=== PATIENT | male | born 1970 | race Caucasian/White ===

== ENCOUNTER 2016-10-14 11:48 | Inpatient (IN) | payer MEDICAID, OTHER ==
[2016-10-14] VITALS (11 sets, daily range): BP systolic 139–175; BP diastolic 65–110
[~2016-10-14] VITALS: Ht 167.6 cm; Wt 83.5 kg
[2016-10-14] MEDS ORDERED: LEVO50 PO (11:55)
[2016-10-14] MEDS ORDERED: SIMV-261 PO (11:55)
[2016-10-14] MEDS ORDERED: INSNOV SQ (11:55)
[2016-10-14] MEDS ORDERED: FURO20 PO (12:01)
[2016-10-14 12:20] LABS: BASOPHILS # (AUTO) 0.05 K/uL (0.00-0.20); BASOPHILS % (AUTO) 0.6 % (0.0-2.0); EOSINOPHILS # (AUTO) 0.43 K/uL (0.00-0.70); EOSINOPHILS % (AUTO) 5.81 % (1.0-6.0); LYMPHOCYTES # (AUTO) 1.5 K/uL (1.0-4.8); LYMPHOCYTES % (AUTO) 20.7 % (22.0-44.0); MEAN CORPUSCULAR HEMOGLOBIN 30.3 pg (26.0-34.0); MEAN CORPUSCULAR HGB CONC 32.5 G/dL (31.0-37.0); MEAN CORPUSCULAR VOLUME 93 fL (80-100); MONOCYTES # (AUTO) 0.5 K/uL (0.1-1.0); MONOCYTES % (AUTO) 6.1 % (2.0-9.0); NEUTROPHILS # (AUTO) 4.9 K/uL (1.8-7.7); NEUTROPHILS % (AUTO) 66.8 % (40.0-70.0); PLATELET COUNT (AUTO) 183 K/uL (150-450); RED BLOOD CELL COUNT(AUTO) 2.22 MIL/uL (4.50-5.90); RED CELL DISTRIBUTION WIDTH 17.1 % (11.5-14.5); WHITE BLOOD COUNT (AUTO) 7.4 K/uL (4.5-11.0)
[2016-10-14 12:38] LABS: ALBUMIN 2.1 g/dL (3.4-5.0); BILIRUBIN,TOTAL 0.2 mg/dL (0.1-1.0); CALCIUM, TOTAL 6.9 mg/dL (8.8-10.5); CREATININE 11.5 mg/dL (0.60-1.30); HEMOGLOBIN 6.7 g/dL (13.5-17.5); TOTAL PROTEIN, SERUM 5.5 g/dL (6.4-8.2)
[2016-10-14 12:39] LABS: HEMATOCRIT 20.7 % (41-53)
[2016-10-14 12:54] LABS: ADD UA MICROSCOPIC YES; APPEARANCE,URINE CLEAR (CLEAR); GLUCOSE, URINE (UA) 500 mg/dL (NEGATIVE); KETONES,URINE NEGATIVE (NEGATIVE); LEUKOCYTE ESTERASE ,URINE NEGATIVE (NEGATIVE); OCCULT BLOOD,URINE MODERATE (NEGATIVE); PROTEIN,URINE SEE CONFIRM (NEGATIVE)
[2016-10-14 12:55] LABS: SULFOSALICYLIC ACID,URINE 4+ (Negative)
[2016-10-14 12:57] LABS: SQUAMOUS EPITHELIAL CELL,UR Few /LPF (None Seen)
[2016-10-14] MEDS ORDERED: CALCIUM GLUCONATE 100 MG/ML 10 ML IVP ONE (13:00)
[2016-10-14] MEDS ORDERED: ALBUTEROL SULFATE 2.5 MG/0.5 ML NEB SOLUTION NEB ONE (13:00)
[2016-10-14] MEDS ORDERED: SODIUM POLYSTYRENE SULFONATE 15 GM/60 ML SUSPENSION BOTTLE PO ONE (13:00)
[2016-10-14 13:01] LABS: RBC MORPHOLOGY COMMENT ABNORMAL RBC MORPH
[2016-10-14] MEDS ORDERED: CloNIDine HCL 0.2 MG TABLET PO ONE (14:15)
[2016-10-14] MEDS ORDERED: ALBUTEROL SULFATE 2.5 MG/0.5 ML NEB SOLUTION NEB PRN (19:30)
[2016-10-14] MEDS ORDERED: IPRATROPIUM BROMIDE 0.5 MG/2.5 ML NEB SOLUTION NEB PRN (19:30)
[2016-10-14] MEDS ORDERED: OxyCODONE HCL/ACETAMINOPHEN 5-325 MG TABLET PO PRN (19:30)
[2016-10-14] MEDS ORDERED: MAGNESIUM HYDROXIDE SUSPENSION 30 ML UDCUP PO PRN (19:30)
[2016-10-14] MEDS ORDERED: ZOLPIDEM TARTRATE 5 MG TABLET PO PRN (19:30)
[2016-10-14] MEDS ORDERED: DEXTROSE 50%-WATER 25 GM/50 ML SYRINGE IVP PRN (19:30)
[2016-10-14] MEDS ORDERED: ACETAMINOPHEN 325 MG TABLET PO PRN (19:30)
[2016-10-14] MEDS ORDERED: BISACODYL 10 MG RECTAL RECTAL SUPPOSITORY PR PRN (19:30)
[2016-10-14 19:52] LABS: CREATININE 11.36 mg/dL (0.60-1.30); POTASSIUM 5.3 mmol/L (3.5-5.1)
[2016-10-14] MEDS: HEPARIN SODIUM,PORCINE 5,000 UNITS/ML VIAL SQ SCH (21:34)
[2016-10-14] MEDS: SIMVASTATIN 40 MG TABLET PO SCH (21:34)
[2016-10-14 23:05] LABS: ABG A-A DIFF O2 17.8 mmHg (10-20.0); ABG BASE EXCESS -17.5 mmol/L (-2.0-3.0); ABG HCO3 11.8 mmol/L (22.0-26.0); ABG OXYHEMOGLOBIN 94.3 % (94.0-100.0); ABG PCO2 28 mmHg (35-45); TEMPERATURE, FAHRENHEIT, BG 98.6 FAHREN (96.0-98.6)
[2016-10-14 23:07] LABS: ABG PH 7.198 (7.35-7.450); ALLEN TEST, BLOOD GAS POSITIVE
[2016-10-14] MEDS ORDERED: SODIUM BICARBONATE 150 MEQ in DEXTROSE 5%-WATER 1,000 ML IV ONE (23:45)
[2016-10-15] MEDS ORDERED: HEPARIN SODIUM,PORCINE 1,000 UNITS/ML VIAL IVP ONE
[2016-10-15 02:47] LABS: GLUCOSE COMMENT 1 Doctor Notified; GLUCOSE,POINT OF CARE 158 MG/DL (70-110)
[2016-10-15] MEDS: LEVOTHYROXINE SODIUM 50 MCG TABLET PO SCH (05:59)
[2016-10-15 06:11] LABS: BASOPHILS # (AUTO) 0.04 K/uL (0.00-0.20); BASOPHILS % (AUTO) 0.7 % (0.0-2.0); EOSINOPHILS # (AUTO) 0.28 K/uL (0.00-0.70); EOSINOPHILS % (AUTO) 5.05 % (1.0-6.0); HEMOGLOBIN 7.5 g/dL (13.5-17.5); LYMPHOCYTES # (AUTO) 1.4 K/uL (1.0-4.8); LYMPHOCYTES % (AUTO) 24.6 % (22.0-44.0); MEAN CORPUSCULAR HEMOGLOBIN 30.3 pg (26.0-34.0); MEAN CORPUSCULAR HGB CONC 34.1 G/dL (31.0-37.0); MEAN CORPUSCULAR VOLUME 89 fL (80-100); MONOCYTES # (AUTO) 0.4 K/uL (0.1-1.0); MONOCYTES % (AUTO) 7.1 % (2.0-9.0); NEUTROPHILS # (AUTO) 3.5 K/uL (1.8-7.7); NEUTROPHILS % (AUTO) 62.6 % (40.0-70.0); PLATELET COUNT (AUTO) 150 K/uL (150-450); RED BLOOD CELL COUNT(AUTO) 2.48 MIL/uL (4.50-5.90); RED CELL DISTRIBUTION WIDTH 18.4 % (11.5-14.5); WHITE BLOOD COUNT (AUTO) 5.6 K/uL (4.5-11.0)
[2016-10-15] MEDS: CloNIDine HCL 0.1 MG TABLET PO PRN ×2 (06:30→16:59)
[2016-10-15 06:32] LABS: ALBUMIN 1.8 g/dL (3.4-5.0); BILIRUBIN,TOTAL 0.2 mg/dL (0.1-1.0); CALCIUM, TOTAL 6.8 mg/dL (8.8-10.5); CHOL/HDL RATIO 4.5 (4.2-7.3); CREATININE 11.31 mg/dL (0.60-1.30); MAGNESIUM 2.5 mg/dL (1.80-2.40); POTASSIUM 5.1 mmol/L (3.5-5.1); THYROID STIMULATING HORMONE 6.1 uIU/mL (0.36-3.74); TOTAL PROTEIN, SERUM 4.7 g/dL (6.4-8.2)
[2016-10-15 06:54] LABS: HEMOGLOBIN A1C 5.6 % (4.5-6.2)
[2016-10-15 07:30] LABS: PHOSPHORUS 9.3 mg/dL (2.5-4.9)
[2016-10-15 07:55] LABS: RBC MORPHOLOGY COMMENT ABNORMAL RBC MORPH
[2016-10-15 07:58] LABS: TEMPERATURE, FAHRENHEIT, BG 98.3 FAHREN (96.0-98.6)
[2016-10-15 08:10] LABS: ABG A-A DIFF O2 14.1 mmHg (10-20.0); ABG HCO3 13.5 mmol/L (22.0-26.0); ABG OXYHEMOGLOBIN 95.7 % (94.0-100.0); ABG PCO2 33 mmHg (35-45)
[2016-10-15 08:12] LABS: ABG PH 7.207 (7.35-7.450); ALLEN TEST, BLOOD GAS Positive
[2016-10-15] MEDS: HEPARIN SODIUM,PORCINE 5,000 UNITS/ML VIAL SQ SCH ×2 (09:13→20:11)
[2016-10-15] MEDS: PANTOPRAZOLE SODIUM 40 MG DR TABLET PO SCH (09:14)
[2016-10-15 11:07] LABS: GLUCOSE,POINT OF CARE 215 MG/DL (70-110)
[2016-10-15] MEDS: SOD FERRIC GLUC COMPLX/SUCROSE 125 MG in SODIUM CHLORIDE 0.9% 100 ML IV SCH (12:00)
[2016-10-15 12:03] LABS: PROTHROMBIN TIME 10.5 SEC (9.4-11.6)
[2016-10-15 12:45] LABS: CREATININE 11.2 mg/dL (0.60-1.30); POTASSIUM 4.8 mmol/L (3.5-5.1)
[2016-10-15 13:18] VITALS: BP 173/99
[2016-10-15 17:31] LABS: GLUCOSE,POINT OF CARE 188 MG/DL (70-110)
[2016-10-15] MEDS: CARVEDILOL 6.25 MG TABLET PO SCH (18:08)
[2016-10-15] MEDS: INSULIN ASPART 100 UNITS/ML SQ PRN (18:14)
[2016-10-15 18:31] VITALS: BP 190/96
[2016-10-15] MEDS: HydrALAZINE HCL 20 MG/ML VIAL IVP PRN (20:08)
[2016-10-15] MEDS: SIMVASTATIN 40 MG TABLET PO SCH (20:11)
[2016-10-15 21:39] VITALS: BP 162/100
[2016-10-16] VITALS (8 sets, daily range): BP systolic 140–180; BP diastolic 77–101
[2016-10-16] MEDS ORDERED: INFLUENZA VIRUS VACCINE QVS 2016-17 (3YR+)/PF 60 MCG/0.5 ML SYRINGE IM ONE (01:15)
[2016-10-16] MEDS ORDERED: PNEUMOCOCCAL VACCINE POLYVALENT 0.5 ML VIAL [PPSV23] IM ONE (01:15)
[2016-10-16 02:51] LABS: GLUCOSE COMMENT 1 Received Meds; GLUCOSE,POINT OF CARE 130 MG/DL (70-110)
[2016-10-16 05:42] LABS: GLUCOSE,POINT OF CARE 137 MG/DL (70-110)
[2016-10-16] MEDS: INSULIN ASPART 100 UNITS/ML SQ PRN ×2 (06:16→21:18)
[2016-10-16] MEDS: HEPARIN SODIUM,PORCINE 5,000 UNITS/ML VIAL SQ SCH ×2 (09:00→20:21)
[2016-10-16 09:15] LABS: CALCIUM, TOTAL 6.6 mg/dL (8.8-10.5); CREATININE 11.09 mg/dL (0.60-1.30); POTASSIUM 5.4 mmol/L (3.5-5.1)
[2016-10-16 09:19] LABS: ALBUMIN 1.7 g/dL (3.4-5.0); BILIRUBIN,TOTAL 0.2 mg/dL (0.1-1.0); TOTAL PROTEIN, SERUM 4.7 g/dL (6.4-8.2)
[2016-10-16] MEDS: LEVOTHYROXINE SODIUM 50 MCG TABLET PO SCH (09:27)
[2016-10-16] MEDS: EPOETIN ALFA 10,000 UNITS/ML 2 ML VIAL SQ SCH (09:55)
[2016-10-16] MEDS ORDERED: MIDAZOLAM HCL 2 MG/2 ML VIAL ONE (14:22)
[2016-10-16] MEDS ORDERED: HEPARIN SODIUM 1000 UNITS/NS 500 ML ONE (14:22)
[2016-10-16] MEDS ORDERED: LIDOCAINE HCL 1%/EPI 1:200,000/PF 10 ML VIAL ONE (14:22)
[2016-10-16] MEDS ORDERED: HEPARIN SODIUM,PORCINE 1,000 UNITS/ML 10 ML VIAL ONE (14:22)
[2016-10-16] MEDS ORDERED: FentaNYL CITRATE-PF 100 MCG/2 ML VIAL ONE (14:22)
[2016-10-16] MEDS: SOD FERRIC GLUC COMPLX/SUCROSE 125 MG in SODIUM CHLORIDE 0.9% 100 ML IV SCH (18:48)
[2016-10-16] MEDS: PANTOPRAZOLE SODIUM 40 MG DR TABLET PO SCH (18:50)
[2016-10-16] MEDS: CARVEDILOL 6.25 MG TABLET PO SCH (18:50)
[2016-10-16] MEDS ORDERED: SODIUM CHLORIDE 0.9% 250 ML IV ONE (18:53)
[2016-10-16] MEDS: CloNIDine HCL 0.1 MG TABLET PO PRN (19:24)
[2016-10-16] MEDS: SIMVASTATIN 40 MG TABLET PO SCH (20:21)
[2016-10-17] MEDS: CARVEDILOL 6.25 MG TABLET PO SCH ×3 (00:14→20:02)
[2016-10-17] MEDS ORDERED: SODIUM CHLORIDE 0.9% 2,000 ML IV ONE (04:07)
[2016-10-17 04:12] VITALS: BP 148/79
[2016-10-17 07:19] LABS: BASOPHILS % (AUTO) 0.9 % (0.0-2.0); EOSINOPHILS % (AUTO) 9.1 % (1.0-6.0); HEMATOCRIT 22.1 % (41-53); HEMOGLOBIN 7.3 g/dL (13.5-17.5); LYMPHOCYTES # (AUTO) 1.2 K/uL (1.0-4.8); LYMPHOCYTES % (AUTO) 27.3 % (22.0-44.0); MEAN CORPUSCULAR HEMOGLOBIN 29.7 pg (26.0-34.0); MEAN CORPUSCULAR HGB CONC 32.8 G/dL (31.0-37.0); MEAN CORPUSCULAR VOLUME 91 fL (80-100); MONOCYTES # (AUTO) 0.2 K/uL (0.1-1.0); MONOCYTES % (AUTO) 5.6 % (2.0-9.0); NEUTROPHILS # (AUTO) 2.5 K/uL (1.8-7.7); NEUTROPHILS % (AUTO) 57.1 % (40.0-70.0); PLATELET COUNT (AUTO) 150 K/uL (150-450); RED BLOOD CELL COUNT(AUTO) 2.44 MIL/uL (4.50-5.90); RED CELL DISTRIBUTION WIDTH 18.8 % (11.5-14.5); WHITE BLOOD COUNT (AUTO) 4.3 K/uL (4.5-11.0)
[2016-10-17 07:34] LABS: CALCIUM, TOTAL 6.8 mg/dL (8.8-10.5); CREATININE 7.33 mg/dL (0.60-1.30); MAGNESIUM 1.9 mg/dL (1.80-2.40); PHOSPHORUS 5.5 mg/dL (2.5-4.9); POTASSIUM 3.6 mmol/L (3.5-5.1)
[2016-10-17 07:45] VITALS: BP 175/105
[2016-10-17] MEDS: HEPARIN SODIUM,PORCINE 5,000 UNITS/ML VIAL SQ SCH ×2 (08:51→21:00)
[2016-10-17] MEDS: ONDANSETRON HCL 4 MG/2 ML VIAL IVP PRN ×2 (08:51→17:33)
[2016-10-17] MEDS: LEVOTHYROXINE SODIUM 50 MCG TABLET PO SCH (08:51)
[2016-10-17] MEDS: PANTOPRAZOLE SODIUM 40 MG DR TABLET PO SCH (08:51)
[2016-10-17 10:34] LABS: RBC MORPHOLOGY COMMENT ABNORMAL RBC MORPH
[2016-10-17 10:56] VITALS: BP 178/85
[2016-10-17 12:03] LABS: GLUCOSE COMMENT 1 Received Meds; GLUCOSE,POINT OF CARE 178 MG/DL (70-110)
[2016-10-17 12:03] LABS: GLUCOSE,POINT OF CARE 139 MG/DL (70-110)
[2016-10-17] MEDS: SOD FERRIC GLUC COMPLX/SUCROSE 125 MG in SODIUM CHLORIDE 0.9% 100 ML IV SCH (12:42)
[2016-10-17] MEDS: CALCITRIOL 0.25 MCG CAPSULE PO SCH (12:42)
[2016-10-17 15:11] VITALS: BP 177/94
[2016-10-17] MEDS ORDERED: HEPARIN SODIUM,PORCINE 1,000 UNITS/ML VIAL IVP ONE ×2 (18:36)
[2016-10-17 19:27] VITALS: BP 183/89
[2016-10-17] MEDS: SIMVASTATIN 40 MG TABLET PO SCH (20:02)
[2016-10-17] MEDS: HydrALAZINE HCL 20 MG/ML VIAL IVP PRN (20:03)
[2016-10-17] MEDS: INSULIN ASPART 100 UNITS/ML SQ PRN (20:23)
[2016-10-17 23:49] VITALS: BP 158/70
[2016-10-18] MEDS ORDERED: PROPOFOL 1% 20 ML VIAL IVP ONE (00:07)
[2016-10-18] MEDS ORDERED: HEPARIN SODIUM,PORCINE 1,000 UNITS/ML 10 ML VIAL IVP ONE (00:07)
[2016-10-18] MEDS ORDERED: FentaNYL CITRATE-PF 100 MCG/2 ML VIAL IVP ONE (00:17)
[2016-10-18 04:34] VITALS: BP 137/75
[2016-10-18] MEDS: LEVOTHYROXINE SODIUM 50 MCG TABLET PO SCH (06:00)
[2016-10-18 07:08] LABS: BASOPHILS % (AUTO) 0.5 % (0.0-2.0); EOSINOPHILS % (AUTO) 5.5 % (1.0-6.0); HEMATOCRIT 25.7 % (41-53); HEMOGLOBIN 8.4 g/dL (13.5-17.5); LYMPHOCYTES # (AUTO) 1.3 K/uL (1.0-4.8); LYMPHOCYTES % (AUTO) 21.2 % (22.0-44.0); MEAN CORPUSCULAR HEMOGLOBIN 29.4 pg (26.0-34.0); MEAN CORPUSCULAR HGB CONC 32.6 G/dL (31.0-37.0); MEAN CORPUSCULAR VOLUME 90 fL (80-100); MONOCYTES # (AUTO) 0.7 K/uL (0.1-1.0); MONOCYTES % (AUTO) 10.9 % (2.0-9.0); NEUTROPHILS # (AUTO) 3.8 K/uL (1.8-7.7); NEUTROPHILS % (AUTO) 61.9 % (40.0-70.0); PLATELET COUNT (AUTO) 167 K/uL (150-450); RED BLOOD CELL COUNT(AUTO) 2.86 MIL/uL (4.50-5.90); RED CELL DISTRIBUTION WIDTH 18.1 % (11.5-14.5); WHITE BLOOD COUNT (AUTO) 6.2 K/uL (4.5-11.0)
[2016-10-18 07:14] LABS: RBC MORPHOLOGY COMMENT ABNORMAL RBC MORPH
[2016-10-18 07:15] VITALS: BP 166/95
[2016-10-18 07:32] LABS: GLUCOSE,POINT OF CARE 109 MG/DL (70-110)
[2016-10-18] MEDS: HEPARIN SODIUM,PORCINE 5,000 UNITS/ML VIAL SQ SCH ×2 (07:32→20:24)
[2016-10-18 07:36] LABS: GLUCOSE,POINT OF CARE 172 MG/DL (70-110)
[2016-10-18] MEDS: HydrALAZINE HCL 20 MG/ML VIAL IVP PRN (07:39)
[2016-10-18 07:48] LABS: CREATININE 6.71 mg/dL (0.60-1.30); MAGNESIUM 1.7 mg/dL (1.80-2.40); PHOSPHORUS 5.7 mg/dL (2.5-4.9); POTASSIUM 3.8 mmol/L (3.5-5.1)
[2016-10-18] MEDS ORDERED: SODIUM CHLORIDE 0.9% 1,000 ML IV ONE ×2 (08:30→08:36)
[2016-10-18] MEDS ORDERED: HYDROmorphone 2 MG/ML SYRINGE IVP PRN (09:30)
[2016-10-18] MEDS ORDERED: FentaNYL CITRATE-PF 100 MCG/2 ML VIAL IVP PRN (09:30)
[2016-10-18] MEDS ORDERED: MEPERIDINE-PF 25 MG/ML SYRINGE IVP PRN (09:30)
[2016-10-18] MEDS ORDERED: LIDOCAINE HCL/PF 1% 30 ML VIAL ONE (09:44)
[2016-10-18] MEDS ORDERED: HEPARIN SODIUM,PORCINE 5,000 UNITS/ML VIAL SQ ONE (09:44)
[2016-10-18] MEDS ORDERED: SODIUM CHLORIDE 0.9% 10 ML ONE (09:44)
[2016-10-18 11:15] VITALS: BP 162/86
[2016-10-18] MEDS: CARVEDILOL 6.25 MG TABLET PO SCH ×2 (11:36→20:24)
[2016-10-18] MEDS: CALCITRIOL 0.25 MCG CAPSULE PO SCH (11:36)
[2016-10-18] MEDS: PANTOPRAZOLE SODIUM 40 MG DR TABLET PO SCH (11:36)
[2016-10-18] MEDS: EPOETIN ALFA 10,000 UNITS/ML 2 ML VIAL SQ SCH (11:37)
[2016-10-18] MEDS: SOD FERRIC GLUC COMPLX/SUCROSE 125 MG in SODIUM CHLORIDE 0.9% 100 ML IV SCH (14:56)
[2016-10-18 15:13] VITALS: BP 146/80
[2016-10-18] MEDS: INSULIN ASPART 100 UNITS/ML SQ PRN ×2 (18:15→20:25)
[2016-10-18 19:47] LABS: GLUCOSE,POINT OF CARE 105 MG/DL (70-110)
[2016-10-18 19:48] VITALS: BP 147/76
[2016-10-18] MEDS: OXYGEN THERAPY IH SCH (20:00)
[2016-10-18] MEDS: SIMVASTATIN 40 MG TABLET PO SCH (20:24)
[2016-10-18 23:54] VITALS: BP 137/69
[2016-10-19 06:08] VITALS: BP 100/50
[2016-10-19] MEDS: OXYGEN THERAPY IH SCH ×2 (08:00→20:00)
[2016-10-19 09:56] VITALS: BP 168/81
[2016-10-19] MEDS: PANTOPRAZOLE SODIUM 40 MG DR TABLET PO SCH (09:57)
[2016-10-19] MEDS: CALCITRIOL 0.25 MCG CAPSULE PO SCH (09:57)
[2016-10-19] MEDS: CARVEDILOL 6.25 MG TABLET PO SCH ×2 (09:57→19:44)
[2016-10-19] MEDS: LEVOTHYROXINE SODIUM 50 MCG TABLET PO SCH (09:57)
[2016-10-19] MEDS: HEPARIN SODIUM,PORCINE 5,000 UNITS/ML VIAL SQ SCH ×2 (09:58→19:44)
[2016-10-19] MEDS: HydrALAZINE HCL 20 MG/ML VIAL IVP PRN ×2 (09:58→19:45)
[2016-10-19 10:28] LABS: BASOPHILS % (AUTO) 0.8 % (0.0-2.0); EOSINOPHILS % (AUTO) 5.6 % (1.0-6.0); HEMATOCRIT 26.2 % (41-53); HEMOGLOBIN 8.5 g/dL (13.5-17.5); LYMPHOCYTES # (AUTO) 1.8 K/uL (1.0-4.8); LYMPHOCYTES % (AUTO) 22.1 % (22.0-44.0); MEAN CORPUSCULAR HEMOGLOBIN 29.4 pg (26.0-34.0); MEAN CORPUSCULAR HGB CONC 32.5 G/dL (31.0-37.0); MEAN CORPUSCULAR VOLUME 91 fL (80-100); MONOCYTES % (AUTO) 12.2 % (2.0-9.0); NEUTROPHILS # (AUTO) 4.9 K/uL (1.8-7.7); NEUTROPHILS % (AUTO) 59.3 % (40.0-70.0); PLATELET COUNT (AUTO) 184 K/uL (150-450); RED CELL DISTRIBUTION WIDTH 18.2 % (11.5-14.5); WHITE BLOOD COUNT (AUTO) 8.2 K/uL (4.5-11.0)
[2016-10-19 10:36] VITALS: BP 151/86
[2016-10-19 10:37] LABS: CALCIUM, TOTAL 7.1 mg/dL (8.8-10.5); CREATININE 4.73 mg/dL (0.60-1.30); MAGNESIUM 1.5 mg/dL (1.80-2.40); PHOSPHORUS 3.7 mg/dL (2.5-4.9); POTASSIUM 3.2 mmol/L (3.5-5.1)
[2016-10-19 10:50] LABS: RBC MORPHOLOGY COMMENT ABNORMAL RBC MORPH
[2016-10-19 11:34] VITALS: BP 152/89
[2016-10-19] MEDS: INSULIN ASPART 100 UNITS/ML SQ PRN ×3 (12:43→20:50)
[2016-10-19] MEDS: SOD FERRIC GLUC COMPLX/SUCROSE 125 MG in SODIUM CHLORIDE 0.9% 100 ML IV SCH (14:56)
[2016-10-19] MEDS ORDERED: CARV6 PO (15:27)
[2016-10-19] MEDS ORDERED: CALC25 PO (15:27)
[2016-10-19] MEDS ORDERED: FOLI1CAP2 PO ×2 (16:01→16:04)
[2016-10-19 16:06] VITALS: BP 153/84
[2016-10-19 19:22] VITALS: BP 185/94
[2016-10-19] MEDS: SIMVASTATIN 40 MG TABLET PO SCH (19:44)
[2016-10-20 00:05] VITALS: BP 141/69
[2016-10-20 05:09] VITALS: BP 170/97
[2016-10-20] MEDS: LEVOTHYROXINE SODIUM 50 MCG TABLET PO SCH (05:52)
[2016-10-20 07:59] VITALS: BP_SYST 178; BP_DIAS 90; BP_DIAS 99
[2016-10-20] MEDS: OXYGEN THERAPY IH SCH (08:00)
[2016-10-20] MEDS: PANTOPRAZOLE SODIUM 40 MG DR TABLET PO SCH (08:36)
[2016-10-20] MEDS: CALCITRIOL 0.25 MCG CAPSULE PO SCH (08:36)
[2016-10-20] MEDS: HEPARIN SODIUM,PORCINE 5,000 UNITS/ML VIAL SQ SCH (08:36)
[2016-10-20] MEDS: CARVEDILOL 6.25 MG TABLET PO SCH (08:36)
[2016-10-20 11:07] VITALS: BP 150/83
[2016-10-20] MEDS: SOD FERRIC GLUC COMPLX/SUCROSE 125 MG in SODIUM CHLORIDE 0.9% 100 ML IV SCH (11:41)
[2016-10-20] MEDS: INSULIN ASPART 100 UNITS/ML SQ PRN (12:28)
[2016-10-21 17:37] LABS: GLUCOSE,POINT OF CARE 135 MG/DL (70-110)
[2016-10-21 17:37] LABS: GLUCOSE,POINT OF CARE 103 MG/DL (70-110)
[2016-10-21 17:37] LABS: GLUCOSE,POINT OF CARE 120 MG/DL (70-110)
[2016-10-21 17:42] LABS: GLUCOSE,POINT OF CARE 114 MG/DL (70-110)
[2016-10-22 05:32] LABS: GLUCOSE COMMENT 1 Received Meds; GLUCOSE,POINT OF CARE 214 MG/DL (70-110)
[2016-10-22 15:02] LABS: GLUCOSE COMMENT 1 Received Meds; GLUCOSE,POINT OF CARE 144 MG/DL (70-110)
[2016-10-22 15:23] LABS: GLUCOSE COMMENT 1 Received Meds; GLUCOSE,POINT OF CARE 147 MG/DL (70-110)
[2016-10-22 15:27] LABS: GLUCOSE,POINT OF CARE 228 MG/DL (70-110)
== END 2016-10-20 13:45 | disposition home or self-care (01) | DRG 444 ==
LOC: EDUNIT# 11:48 → EMS 11:49 → AHU 10-15 08:14 → 5S 10-15 18:19
PROVIDERS: ADMIT Internal Medicine; ATTEND Internal Medicine
PROC: 30243N1 Transfusion of Nonautologous Red Blood Cells into Central Vein, Percutaneous Approach (ICD-10-PCS; 2016-10-16)
PROC: 02HV33Z Insertion of Infusion Device into Superior Vena Cava, Percutaneous Approach (ICD-10-PCS; 2016-10-16)
PROC: B548ZZA Ultrasonography of Superior Vena Cava, Guidance (ICD-10-PCS; 2016-10-16)
PROC: 3E0234Z Introduction of Serum, Toxoid and Vaccine into Muscle, Percutaneous Approach (ICD-10-PCS; 2016-10-16)
PROC: 5A1D00Z (ICD-10-PCS; 2016-10-16)
PROC: 031C0ZF Bypass Left Radial Artery to Lower Arm Vein, Open Approach (ICD-10-PCS; principal; 2016-10-18 09:45)
DX: N17.9 Acute kidney failure, unspecified (principal); E43 Unspecified severe protein-calorie malnutrition; E87.2 Acidosis; I12.0 Hypertensive chronic kidney disease with stage 5 chronic kidney disease or end stage renal disease; D63.1 Anemia in chronic kidney disease; E11.21 Type 2 diabetes mellitus with diabetic nephropathy; E11.65 Type 2 diabetes mellitus with hyperglycemia; E03.9 Hypothyroidism, unspecified; E11.22 Type 2 diabetes mellitus with diabetic chronic kidney disease; E11.319 Type 2 diabetes mellitus with unspecified diabetic retinopathy without macular edema; E78.00 Pure hypercholesterolemia, unspecified; E78.5 Hyperlipidemia, unspecified; E83.39 Other disorders of phosphorus metabolism; E87.5 Hyperkalemia; N18.6 End stage renal disease; E88.09 Other disorders of plasma-protein metabolism, not elsewhere classified; Z79.4 Long term (current) use of insulin; Z87.442 Personal history of urinary calculi; Z87.891 Personal history of nicotine dependence; Z68.29 Body mass index [BMI] 29.0-29.9, adult; Z23 Encounter for immunization; Z79.899 Other long term (current) drug therapy; Z98.890 Other specified postprocedural states; Z80.8 Family history of malignant neoplasm of other organs or systems
CPT/HCPCS: 36245; 36561; 76770; 76937; 82306; 82570; 82805; 82962; 83036; 83540; 83550; 83735; 83970; 84100; 84156; 84300; 84443; 84540; 86850; 86900; 86901; 86920; 87081; 87086; 87340; 90471; 90935; 93005; 93970; 94644; 96365; 96366; 96374; 99291; J0360; J0610; J0690; J0885; J1644; J1815; J2250; J2405; J2704; J2916; J3010; J3490; J7030; J7050; J7060; P9016

== ENCOUNTER 2016-11-18 22:54 | Inpatient (IN) | payer OTHER ==
[~2016-11-18] VITALS: Ht 167.6 cm; Wt 71.2 kg
[~2016-11-18 22:54] MED LIST: CALC25 PO; CARV6 PO; FOLI1CAP2 PO; INSNOV SQ; LEVO50 PO; SIMV40 PO
[2016-11-18 23:12] LABS: GLUCOSE,POINT OF CARE 180 MG/DL (70-110)
[2016-11-18 23:24] LABS: BASOPHILS % (AUTO) 0.6 % (0.0-2.0); HEMATOCRIT 36.8 % (41-53); HEMOGLOBIN 11.7 g/dL (13.5-17.5); LYMPHOCYTES # (AUTO) 1.4 K/uL (1.0-4.8); LYMPHOCYTES % (AUTO) 17.8 % (22.0-44.0); MEAN CORPUSCULAR HEMOGLOBIN 29.7 pg (26.0-34.0); MEAN CORPUSCULAR HGB CONC 31.9 G/dL (31.0-37.0); MEAN CORPUSCULAR VOLUME 93 fL (80-100); MONOCYTES # (AUTO) 0.5 K/uL (0.1-1.0); MONOCYTES % (AUTO) 6.6 % (2.0-9.0); PLATELET COUNT (AUTO) 233 K/uL (150-450); RED BLOOD CELL COUNT(AUTO) 3.95 MIL/uL (4.50-5.90); RED CELL DISTRIBUTION WIDTH 16.9 % (11.5-14.5); WHITE BLOOD COUNT (AUTO) 7.9 K/uL (4.5-11.0)
[2016-11-18 23:33] LABS: ANION GAP 6 mmol/L (8-16); CALCIUM, TOTAL 8.8 mg/dL (8.8-10.5); CARBON DIOXIDE 29 mmol/L (22-29); CHLORIDE 104 mmol/L (98-107); CREATININE 6.33 mg/dL (0.60-1.30); GLOMERULAR FILTR. RATE CALC 10 mL/min (>60); POTASSIUM 5.3 mmol/L (3.5-5.1); SODIUM SERUM 139 mmol/L (136-145); UREA NITROGEN, BLOOD 38 mg/dL (7-18)
[2016-11-18 23:34] LABS: PROTHROMBIN TIME 10.6 SEC (9.4-11.6)
[2016-11-18 23:47] LABS: B-TYPE NATRIURETIC PEPTIDE 3810 pg/mL (0-100)
[2016-11-18 23:58] LABS: ALANINE AMINOTRANSFERASE 22 U/L (12-78); ALBUMIN 3.1 g/dL (3.4-5.0); ASPARTATE AMINOTRANSFERASE 23 U/L (15-37); BILIRUBIN,TOTAL 0.4 mg/dL (0.1-1.0); CREATINE KINASE MB 4.7 ng/mL (0-5); CREATINE KINASE, TOTAL 396 U/L (39-308); TOTAL PROTEIN, SERUM 7.1 g/dL (6.4-8.2)
[2016-11-19] MEDS ORDERED: LABETALOL HCL 5 MG/ML 20 ML VIAL IVP ONE ×2 (02:15→04:00)
[2016-11-19] MEDS ORDERED: NITROGLYCERIN 2% (1 GM=INCH) PACKET TP ONE (02:30)
[2016-11-19] MEDS ORDERED: FUROSEMIDE 40 MG/4 ML VIAL IVP ONE (02:30)
[2016-11-19] MEDS ORDERED: SODIUM POLYSTYRENE SULFONATE 15 GM/60 ML SUSPENSION BOTTLE PR ONE (02:30)
[2016-11-19] MEDS ORDERED: SODIUM POLYSTYRENE SULFONATE 15 GM/60 ML SUSPENSION BOTTLE PO ONE (02:45)
[2016-11-19] MEDS ORDERED: HydrALAZINE HCL 20 MG/ML VIAL IVP ONE (05:00)
[2016-11-19 06:08] VITALS: BP 151/88
[2016-11-19 07:18] VITALS: BP 177/89
[2016-11-19] MEDS ORDERED: CloNIDine HCL 0.1 MG TABLET PO PRN (08:30)
[2016-11-19] MEDS ORDERED: DEXTROSE 50%-WATER 25 GM/50 ML SYRINGE IVP PRN (08:30)
[2016-11-19] MEDS ORDERED: GuaiFENesin/D-METHORPHAN [SUGAR-FREE] 200-20MG/10 ML SYRUP UDCUP PO PRN (08:30)
[2016-11-19] MEDS ORDERED: SODIUM CHLORIDE 0.9% 2,000 ML IV ONE (08:42)
[2016-11-19] MEDS ORDERED: CARVEDILOL 6.25 MG TABLET PO SCH (09:00)
[2016-11-19] MEDS ORDERED: ONDANSETRON HCL 4 MG/2 ML VIAL IVP PRN (10:00)
[2016-11-19] MEDS ORDERED: HydrALAZINE HCL 20 MG/ML VIAL IVP PRN (10:15)
[2016-11-19] MEDS: INSULIN ASPART 100 UNITS/ML SQ PRN ×4 (10:18→21:21)
[2016-11-19] MEDS ORDERED: LEVOTHYROXINE SODIUM 50 MCG TABLET PO SCH (10:30)
[2016-11-19 10:39] LABS: CALCIUM, TOTAL 8.1 mg/dL (8.8-10.5); CREATININE 5.41 mg/dL (0.60-1.30); POTASSIUM 4.5 mmol/L (3.5-5.1)
[2016-11-19 10:40] LABS: BASOPHILS % (AUTO) 0.4 % (0.0-2.0); EOSINOPHILS % (AUTO) 4.4 % (1.0-6.0); HEMATOCRIT 30.2 % (41-53); HEMOGLOBIN 9.7 g/dL (13.5-17.5); LYMPHOCYTES # (AUTO) 1.1 K/uL (1.0-4.8); LYMPHOCYTES % (AUTO) 15.2 % (22.0-44.0); MEAN CORPUSCULAR HEMOGLOBIN 29.8 pg (26.0-34.0); MEAN CORPUSCULAR HGB CONC 32.3 G/dL (31.0-37.0); MEAN CORPUSCULAR VOLUME 92 fL (80-100); MONOCYTES # (AUTO) 0.3 K/uL (0.1-1.0); MONOCYTES % (AUTO) 4.1 % (2.0-9.0); NEUTROPHILS # (AUTO) 5.6 K/uL (1.8-7.7); NEUTROPHILS % (AUTO) 75.9 % (40.0-70.0); PLATELET COUNT (AUTO) 219 K/uL (150-450); RED BLOOD CELL COUNT(AUTO) 3.26 MIL/uL (4.50-5.90); RED CELL DISTRIBUTION WIDTH 16.9 % (11.5-14.5); WHITE BLOOD COUNT (AUTO) 7.4 K/uL (4.5-11.0)
[2016-11-19] MEDS ORDERED: ALBUTEROL SULFATE 2.5 MG/0.5 ML NEB SOLUTION NEB PRN (10:45)
[2016-11-19] MEDS ORDERED: IPRATROPIUM BROMIDE 0.5 MG/2.5 ML NEB SOLUTION NEB PRN (10:45)
[2016-11-19] MEDS ORDERED: ACETAMINOPHEN 325 MG TABLET PO PRN (10:45)
[2016-11-19] MEDS ORDERED: DOCUSATE SODIUM 100 MG CAPSULE PO PRN (10:45)
[2016-11-19 11:00] VITALS: BP 138/76
[2016-11-19] MEDS ORDERED: EPOETIN ALFA 10,000 UNITS/ML 2 ML VIAL SQ SCH (11:55)
[2016-11-19] MEDS ORDERED: HEPARIN SODIUM,PORCINE 1,000 UNITS/ML VIAL IVP ONE (12:47)
[2016-11-19] MEDS: PANTOPRAZOLE SODIUM 40 MG DR TABLET PO SCH (13:30)
[2016-11-19] MEDS: AmLODIPine BESYLATE 10 MG TABLET PO SCH (13:30)
[2016-11-19] MEDS: ASPIRIN 81 MG EC TABLET PO SCH (13:30)
[2016-11-19 16:19] VITALS: BP 123/61
[2016-11-19 19:35] VITALS: BP 132/68
[2016-11-19] MEDS ORDERED: SIMVASTATIN 40 MG TABLET PO SCH (21:00)
[2016-11-19] MEDS: HEPARIN SODIUM,PORCINE 5,000 UNITS/ML VIAL SQ SCH (21:13)
[2016-11-19] MEDS: CARVEDILOL 6.25 MG TABLET PO SCH (21:14)
[2016-11-19 23:54] VITALS: BP 128/64
[2016-11-20 04:12] LABS: GLUCOSE COMMENT 1 Received Meds; GLUCOSE,POINT OF CARE 201 MG/DL (70-110)
[2016-11-20 04:13] VITALS: BP 147/86
[2016-11-20 04:13] LABS: GLUCOSE COMMENT 1 Received Meds; GLUCOSE,POINT OF CARE 233 MG/DL (70-110)
[2016-11-20] MEDS: INSULIN ASPART 100 UNITS/ML SQ PRN (06:13)
[2016-11-20 06:42] LABS: GLUCOSE COMMENT 1 Received Meds; GLUCOSE,POINT OF CARE 202 MG/DL (70-110)
[2016-11-20 06:42] LABS: GLUCOSE COMMENT 1 Received Meds; GLUCOSE,POINT OF CARE 154 MG/DL (70-110)
[2016-11-20 06:47] LABS: GLUCOSE COMMENT 1 Received Meds; GLUCOSE,POINT OF CARE 152 MG/DL (70-110)
[2016-11-20 06:49] LABS: BASOPHILS % (AUTO) 1.3 % (0.0-2.0); EOSINOPHILS % (AUTO) 11.6 % (1.0-6.0); HEMATOCRIT 33.6 % (41-53); HEMOGLOBIN 10.7 g/dL (13.5-17.5); LYMPHOCYTES # (AUTO) 2.1 K/uL (1.0-4.8); LYMPHOCYTES % (AUTO) 28.7 % (22.0-44.0); MEAN CORPUSCULAR HEMOGLOBIN 29.7 pg (26.0-34.0); MEAN CORPUSCULAR HGB CONC 31.9 G/dL (31.0-37.0); MEAN CORPUSCULAR VOLUME 93 fL (80-100); MONOCYTES # (AUTO) 0.7 K/uL (0.1-1.0); MONOCYTES % (AUTO) 9.6 % (2.0-9.0); NEUTROPHILS # (AUTO) 3.5 K/uL (1.8-7.7); NEUTROPHILS % (AUTO) 48.8 % (40.0-70.0); PLATELET COUNT (AUTO) 236 K/uL (150-450); RED BLOOD CELL COUNT(AUTO) 3.62 MIL/uL (4.50-5.90); RED CELL DISTRIBUTION WIDTH 16.9 % (11.5-14.5); WHITE BLOOD COUNT (AUTO) 7.2 K/uL (4.5-11.0)
[2016-11-20 07:17] VITALS: BP 164/90
[2016-11-20 07:24] LABS: HEMOGLOBIN A1C 5.3 % (4.5-6.2)
[2016-11-20 07:36] LABS: IRON, SERUM 50 mcg/dL (50-175); TOTAL IRON BINDING CAPACITY 210 mcg/dL (250-450)
[2016-11-20 07:51] LABS: ALANINE AMINOTRANSFERASE 14 U/L (12-78); ALBUMIN 2.3 g/dL (3.4-5.0); ANION GAP 8 mmol/L (8-16); ASPARTATE AMINOTRANSFERASE 16 U/L (15-37); BILIRUBIN,TOTAL 0.3 mg/dL (0.1-1.0); CALCIUM, TOTAL 7.8 mg/dL (8.8-10.5); CARBON DIOXIDE 28 mmol/L (22-29); CHLORIDE 104 mmol/L (98-107); CHOL/HDL RATIO 2.5 (4.2-7.3); CREATINE KINASE MB 2.3 ng/mL (0-5); CREATINE KINASE, TOTAL 156 U/L (39-308); CREATININE 5.13 mg/dL (0.60-1.30); GLOMERULAR FILTR. RATE CALC 12 mL/min (>60); PHOSPHORUS 5.9 mg/dL (2.5-4.9); POTASSIUM 4.3 mmol/L (3.5-5.1); SODIUM SERUM 140 mmol/L (136-145); THYROID STIMULATING HORMONE 1.27 uIU/mL (0.36-3.74); TOTAL PROTEIN, SERUM 5.6 g/dL (6.4-8.2); UREA NITROGEN, BLOOD 29 mg/dL (7-18)
[2016-11-20] MEDS ORDERED: LEVOTHYROXINE SODIUM 50 MCG TABLET PO SCH (08:00)
[2016-11-20] MEDS: ASPIRIN 81 MG EC TABLET PO SCH (08:22)
[2016-11-20] MEDS: CARVEDILOL 6.25 MG TABLET PO SCH (08:22)
[2016-11-20] MEDS: PANTOPRAZOLE SODIUM 40 MG DR TABLET PO SCH (08:22)
[2016-11-20] MEDS: AmLODIPine BESYLATE 10 MG TABLET PO SCH (08:22)
[2016-11-20] MEDS: HEPARIN SODIUM,PORCINE 5,000 UNITS/ML VIAL SQ SCH (08:23)
[2016-11-20] MEDS ORDERED: MANNITOL 25%-12.5 GM/50 ML VIAL IVP PRN (10:00)
[2016-11-20] MEDS ORDERED: HEPARIN SODIUM,PORCINE 1,000 UNITS/ML VIAL IVP ONE ×2 (10:00)
[2016-11-20] MEDS ORDERED: ALBUMIN HUMAN 25%-12.5GM/50ML IV BOTTLE IV PRN (10:00)
[2016-11-20 11:17] VITALS: BP 142/89
[2016-11-20] MEDS ORDERED: SEVELAMER CARBONATE 800 MG TABLET PO SCH (12:00)
[2016-11-20 15:24] VITALS: BP 149/85
[2016-11-20] MEDS ORDERED: ASPI81TA2 PO (16:30)
[2016-11-20] MEDS ORDERED: AMLO10TA4 PO (16:40)
[2016-11-20] MEDS ORDERED: SEVE800PW PO (16:55)
[2016-11-20 20:52] LABS: GLUCOSE,POINT OF CARE 122 MG/DL (70-110)
== END 2016-11-20 18:20 | disposition home or self-care (01) | DRG 133 ==
LOC: EMS 22:56 → 5N 11-19 05:00
PROVIDERS: ADMIT Internal Medicine; ATTEND Internal Medicine
PROC: 5A1D00Z (ICD-10-PCS; principal; 2016-11-19)
DX: J96.00 Acute respiratory failure, unspecified whether with hypoxia or hypercapnia (principal); I13.2 Hypertensive heart and chronic kidney disease with heart failure and with stage 5 chronic kidney disease, or end stage renal disease; N18.6 End stage renal disease; E11.21 Type 2 diabetes mellitus with diabetic nephropathy; E78.5 Hyperlipidemia, unspecified; I16.0 Hypertensive urgency; D63.8 Anemia in other chronic diseases classified elsewhere; E11.65 Type 2 diabetes mellitus with hyperglycemia; E03.9 Hypothyroidism, unspecified; E11.22 Type 2 diabetes mellitus with diabetic chronic kidney disease; E11.319 Type 2 diabetes mellitus with unspecified diabetic retinopathy without macular edema; E83.39 Other disorders of phosphorus metabolism; E78.00 Pure hypercholesterolemia, unspecified; E88.09 Other disorders of plasma-protein metabolism, not elsewhere classified; F17.210 Nicotine dependence, cigarettes, uncomplicated; Z83.3 Family history of diabetes mellitus; Z87.442 Personal history of urinary calculi; Z99.2 Dependence on renal dialysis; Z98.890 Other specified postprocedural states; Z80.8 Family history of malignant neoplasm of other organs or systems
CPT/HCPCS: 82607; 82746; 82962; 83036; 83540; 83550; 83735; 83970; 84100; 84145; 84439; 84443; 87081; 87340; 93005; 93306; 93970; 96374; 96375; 96376; 99291; J0360; J0885; J1644; J1940; J3490; J7030

== ENCOUNTER 2017-12-22 13:45 | Inpatient (IN) | payer OTHER ==
[~2017-12-22] VITALS: Ht 167.6 cm; Wt 69.2 kg
[~2017-12-22 13:45] MED LIST changes: +AMLO10TA4 PO; +ASPI81TA39 PO; +SEVE800PW PO; +SIMV-261 PO; -SIMV40 PO
[2017-12-22] MEDS ORDERED: AmLODIPine BESYLATE 5 MG TABLET PO ONE (15:15)
[2017-12-22] MEDS ORDERED: CARVEDILOL 3.125 MG TABLET PO ONE (15:15)
[2017-12-22] MEDS ORDERED: ACETAMINOPHEN 500 MG TABLET PO ONE (15:15)
[2017-12-22 15:35] LABS: BASOPHILS % (AUTO) 0.6 % (0.0-2.0); EOSINOPHILS % (AUTO) 1.1 % (1.0-6.0); HEMATOCRIT 32.5 % (41-53); HEMOGLOBIN 11.3 g/dL (13.5-17.5); LYMPHOCYTES % (AUTO) 7.6 % (22.0-44.0); MEAN CORPUSCULAR HEMOGLOBIN 33.2 pg (26.0-34.0); MEAN CORPUSCULAR HGB CONC 34.9 G/dL (31.0-37.0); MEAN CORPUSCULAR VOLUME 95 fL (80-100); MONOCYTES # (AUTO) 1.3 K/uL (0.1-1.0); MONOCYTES % (AUTO) 9.3 % (2.0-9.0); NEUTROPHILS # (AUTO) 11.2 K/uL (1.8-7.7); NEUTROPHILS % (AUTO) 81.4 % (40.0-70.0); PLATELET COUNT (AUTO) 179 K/uL (150-450); RED BLOOD CELL COUNT(AUTO) 3.41 MIL/uL (4.50-5.90); RED CELL DISTRIBUTION WIDTH 12.8 % (11.5-14.5)
[2017-12-22 15:44] LABS: CALCIUM, TOTAL 8.7 mg/dL (8.8-10.5); CREATININE 11.03 mg/dL (0.60-1.30); POTASSIUM 5.5 mmol/L (3.5-5.1)
[2017-12-22 15:50] LABS: ALBUMIN 3.5 g/dL (3.4-5.0); BILIRUBIN,TOTAL 0.5 mg/dL (0.1-1.0); TOTAL PROTEIN, SERUM 7.9 g/dL (6.4-8.2)
[2017-12-22 15:55] LABS: LACTIC ACID 0.6 mmol/L (0.4-2.0)
[2017-12-22] MEDS ORDERED: VANCOMYCIN HCL 1 GM/D5% WATER 200 ML IV ONE (16:30)
[2017-12-22] MEDS ORDERED: 0.9% SODIUM CHLORIDE 10 ML SYRINGE IVP PRN (17:30)
[2017-12-22] MEDS ORDERED: ACETAMINOPHEN 325 MG TABLET PO PRN (17:30)
[2017-12-22] MEDS ORDERED: ONDANSETRON HCL 4 MG/2 ML VIAL IVP PRN (17:30)
[2017-12-22] MEDS ORDERED: ALBUTEROL SULFATE 2.5 MG/0.5 ML NEB SOLUTION NEB PRN (20:45)
[2017-12-22] MEDS ORDERED: BISACODYL 10 MG RECTAL RECTAL SUPPOSITORY PR PRN (20:45)
[2017-12-22] MEDS ORDERED: DEXTROSE 50%-WATER 25 GM/50 ML SYRINGE IVP PRN (21:00)
[2017-12-22] MEDS ORDERED: VANCOMYCIN HCL 500 MG in DEXTROSE 5%-WATER 100 ML IV ONE (21:00)
[2017-12-22] MEDS ORDERED: VANCOMYCIN HCL 1 GM/D5% WATER 200 ML IV PRN (21:00)
[2017-12-22] MEDS ORDERED: CloNIDine HCL 0.1 MG TABLET PO PRN (21:15)
[2017-12-22] MEDS ORDERED: SODIUM CHLORIDE 0.9% 250 ML IV ONE (22:17)
[2017-12-22 22:23] VITALS: BP 151/86
[2017-12-22 22:47] LABS: GLUCOMETER DEV NAME(LOC) 6N 1E; GLUCOSE,POINT OF CARE 127 MG/DL (70-110)
[2017-12-23] MEDS ORDERED: MANNITOL 25%-12.5 GM/50 ML VIAL IVP PRN (01:00)
[2017-12-23] MEDS: ATORVASTATIN CALCIUM 20 MG TABLET PO SCH ×2 (03:08→20:01)
[2017-12-23] MEDS: DOCUSATE SODIUM 100 MG CAPSULE PO SCH ×3 (03:08→21:00)
[2017-12-23] MEDS: HEPARIN SODIUM,PORCINE 5,000 UNITS/ML VIAL SQ SCH ×3 (03:09→20:01)
[2017-12-23 04:28] VITALS: BP 135/72
[2017-12-23] MEDS: ACETAMINOPHEN 325 MG TABLET PO PRN (05:11)
[2017-12-23 05:21] LABS: BASOPHILS % (AUTO) 0.7 % (0.0-2.0); EOSINOPHILS % (AUTO) 2.7 % (1.0-6.0); HEMATOCRIT 31.3 % (41-53); HEMOGLOBIN 11.1 g/dL (13.5-17.5); LYMPHOCYTES # (AUTO) 1.2 K/uL (1.0-4.8); LYMPHOCYTES % (AUTO) 12.2 % (22.0-44.0); MEAN CORPUSCULAR HEMOGLOBIN 33.4 pg (26.0-34.0); MEAN CORPUSCULAR HGB CONC 35.3 G/dL (31.0-37.0); MEAN CORPUSCULAR VOLUME 95 fL (80-100); MONOCYTES # (AUTO) 1.1 K/uL (0.1-1.0); MONOCYTES % (AUTO) 10.5 % (2.0-9.0); NEUTROPHILS # (AUTO) 7.5 K/uL (1.8-7.7); NEUTROPHILS % (AUTO) 73.9 % (40.0-70.0); PLATELET COUNT (AUTO) 183 K/uL (150-450); RED BLOOD CELL COUNT(AUTO) 3.31 MIL/uL (4.50-5.90); RED CELL DISTRIBUTION WIDTH 13.1 % (11.5-14.5)
[2017-12-23 05:26] LABS: CALCIUM, TOTAL 8.9 mg/dL (8.8-10.5); CREATININE 5.75 mg/dL (0.60-1.30); POTASSIUM 3.9 mmol/L (3.5-5.1)
[2017-12-23 05:37] LABS: GLUCOMETER DEV NAME(LOC) 6N 1E; GLUCOSE,POINT OF CARE 96 MG/DL (70-110)
[2017-12-23 07:05] VITALS: BP 145/72
[2017-12-23] MEDS: PANTOPRAZOLE SODIUM 40 MG DR TABLET PO SCH (07:58)
[2017-12-23] MEDS: ASPIRIN 81 MG CHEWABLE TABLET PO SCH (07:59)
[2017-12-23 11:00] VITALS: BP 121/67
[2017-12-23] MEDS ORDERED: DOXERCALCIFEROL 4 MCG/2 ML AMP IVP PRN (11:15)
[2017-12-23] MEDS: VITAMIN B COMP/VIT C/FOLIC ACID CAPSULE PO SCH (12:04)
[2017-12-23] MEDS: LOSARTAN POTASSIUM 50 MG TABLET PO SCH (12:04)
[2017-12-23 12:07] LABS: GLUCOMETER DEV NAME(LOC) 6N 1E; GLUCOSE,POINT OF CARE 251 MG/DL (70-110)
[2017-12-23] MEDS: INSULIN LISPRO 100 UNITS/ML SQ PRN ×3 (12:08→21:27)
[2017-12-23 15:45] VITALS: BP 139/72
[2017-12-23 17:32] LABS: GLUCOMETER DEV NAME(LOC) 6N 1E; GLUCOSE,POINT OF CARE 145 MG/DL (70-110)
[2017-12-23 20:00] VITALS: BP 154/74
[2017-12-23] MEDS: OxyCODONE HCL/ACETAMINOPHEN 5-325 MG TABLET PO PRN (20:04)
[2017-12-23 21:37] LABS: GLUCOMETER DEV NAME(LOC) 6N 1E; GLUCOSE,POINT OF CARE 213 MG/DL (70-110)
[2017-12-24] VITALS (8 sets, daily range): BP systolic 136–158; BP diastolic 63–87
[2017-12-24] MEDS: INSULIN LISPRO 100 UNITS/ML SQ PRN ×4 (06:04→21:03)
[2017-12-24 06:08] LABS: CALCIUM, TOTAL 8.4 mg/dL (8.8-10.5); CREATININE 8.68 mg/dL (0.60-1.30); POTASSIUM 4.7 mmol/L (3.5-5.1); VANCOMYCIN,RANDOM 18.5 mcg/mL (25.0-50.0)
[2017-12-24 06:22] LABS: GLUCOMETER DEV NAME(LOC) 6N 1E; GLUCOSE,POINT OF CARE 179 MG/DL (70-110)
[2017-12-24] MEDS ORDERED: SODIUM CHLORIDE 0.9% 2,000 ML IV ONE (08:49)
[2017-12-24] MEDS: DOCUSATE SODIUM 100 MG CAPSULE PO SCH ×3 (09:00→21:00)
[2017-12-24] MEDS: LOSARTAN POTASSIUM 50 MG TABLET PO SCH ×2 (09:00→14:31)
[2017-12-24] MEDS ORDERED: -HEMODIALYSIS NOTE- MISC SCH (09:00)
[2017-12-24] MEDS: HEPARIN SODIUM,PORCINE 5,000 UNITS/ML VIAL SQ SCH ×2 (09:00→20:46)
[2017-12-24] MEDS ORDERED: VANCOMYCIN HCL 1 GM/D5% WATER 200 ML IV ONE (10:00)
[2017-12-24] MEDS ORDERED: MANNITOL 25%-12.5 GM/50 ML VIAL IVP PRN (10:15)
[2017-12-24] MEDS ORDERED: SODIUM CHLORIDE 0.9% 0 ML IV ONE (14:27)
[2017-12-24] MEDS: PANTOPRAZOLE SODIUM 40 MG DR TABLET PO SCH (14:30)
[2017-12-24] MEDS: OxyCODONE HCL/ACETAMINOPHEN 5-325 MG TABLET PO PRN (14:31)
[2017-12-24] MEDS: VITAMIN B COMP/VIT C/FOLIC ACID CAPSULE PO SCH (14:31)
[2017-12-24] MEDS: ASPIRIN 81 MG CHEWABLE TABLET PO SCH (14:31)
[2017-12-24 17:03] LABS: GLUCOMETER DEV NAME(LOC) 6N 2D; GLUCOSE,POINT OF CARE 177 MG/DL (70-110)
[2017-12-24] MEDS: ACETAMINOPHEN 325 MG TABLET PO PRN (17:31)
[2017-12-24 19:37] LABS: GLUCOMETER DEV NAME(LOC) 6N 2D; GLUCOSE,POINT OF CARE 187 MG/DL (70-110)
[2017-12-24] MEDS: ATORVASTATIN CALCIUM 20 MG TABLET PO SCH (20:46)
[2017-12-24 23:08] LABS: GLUCOMETER DEV NAME(LOC) 6N 1E; GLUCOSE,POINT OF CARE 173 MG/DL (70-110)
[2017-12-25] MEDS: ACETAMINOPHEN 325 MG TABLET PO PRN (00:35)
[2017-12-25 04:50] VITALS: BP 135/72
[2017-12-25] MEDS: OxyCODONE HCL/ACETAMINOPHEN 5-325 MG TABLET PO PRN (05:13)
[2017-12-25] MEDS: INSULIN LISPRO 100 UNITS/ML SQ PRN ×2 (05:51→11:52)
[2017-12-25 06:13] LABS: GLUCOMETER DEV NAME(LOC) 6N 1E; GLUCOSE,POINT OF CARE 197 MG/DL (70-110)
[2017-12-25 06:37] LABS: BASOPHILS % (AUTO) 0.5 % (0.0-2.0); EOSINOPHILS % (AUTO) 2.7 % (1.0-6.0); HEMATOCRIT 31.9 % (41-53); LYMPHOCYTES # (AUTO) 1.5 K/uL (1.0-4.8); MEAN CORPUSCULAR HEMOGLOBIN 33.1 pg (26.0-34.0); MEAN CORPUSCULAR HGB CONC 34.6 G/dL (31.0-37.0); MEAN CORPUSCULAR VOLUME 96 fL (80-100); MONOCYTES # (AUTO) 1.4 K/uL (0.1-1.0); MONOCYTES % (AUTO) 12.4 % (2.0-9.0); NEUTROPHILS # (AUTO) 8.3 K/uL (1.8-7.7); NEUTROPHILS % (AUTO) 71.4 % (40.0-70.0); PLATELET COUNT (AUTO) 218 K/uL (150-450); RED BLOOD CELL COUNT(AUTO) 3.32 MIL/uL (4.50-5.90); RED CELL DISTRIBUTION WIDTH 13.1 % (11.5-14.5)
[2017-12-25 06:51] LABS: CALCIUM, TOTAL 8.4 mg/dL (8.8-10.5); CREATININE 6.93 mg/dL (0.60-1.30); POTASSIUM 4.7 mmol/L (3.5-5.1)
[2017-12-25 07:30] VITALS: BP 156/77
[2017-12-25] MEDS: ASPIRIN 81 MG CHEWABLE TABLET PO SCH (08:17)
[2017-12-25] MEDS: VITAMIN B COMP/VIT C/FOLIC ACID CAPSULE PO SCH (08:17)
[2017-12-25] MEDS: PANTOPRAZOLE SODIUM 40 MG DR TABLET PO SCH (08:17)
[2017-12-25] MEDS: DOCUSATE SODIUM 100 MG CAPSULE PO SCH (08:17)
[2017-12-25] MEDS: LOSARTAN POTASSIUM 50 MG TABLET PO SCH (08:17)
[2017-12-25] MEDS: HEPARIN SODIUM,PORCINE 5,000 UNITS/ML VIAL SQ SCH (08:18)
[2017-12-25 11:18] VITALS: BP 138/71
[2017-12-25 11:28] LABS: GLUCOMETER DEV NAME(LOC) 6N 2D; GLUCOSE,POINT OF CARE 159 MG/DL (70-110)
[2017-12-25] MEDS ORDERED: CLIN300C9 PO (23:19)
== END 2017-12-25 13:00 | disposition home or self-care (01) | DRG 720 ==
LOC: EMS 13:49 → 6N 20:30
PROVIDERS: ADMIT Internal Medicine; ATTEND Internal Medicine
PROC: 5A1D70Z Performance of Urinary Filtration, Intermittent, Less than 6 Hours Per Day (ICD-10-PCS; principal; 2017-12-22)
PROC: 5A1D70Z Performance of Urinary Filtration, Intermittent, Less than 6 Hours Per Day (ICD-10-PCS; 2017-12-23)
PROC: 5A1D70Z Performance of Urinary Filtration, Intermittent, Less than 6 Hours Per Day (ICD-10-PCS; 2017-12-24)
DX: A41.9 Sepsis, unspecified organism (principal); N18.6 End stage renal disease; E11.52 Type 2 diabetes mellitus with diabetic peripheral angiopathy with gangrene; I95.9 Hypotension, unspecified; I12.0 Hypertensive chronic kidney disease with stage 5 chronic kidney disease or end stage renal disease; E83.39 Other disorders of phosphorus metabolism; E11.21 Type 2 diabetes mellitus with diabetic nephropathy; L03.115 Cellulitis of right lower limb; E11.319 Type 2 diabetes mellitus with unspecified diabetic retinopathy without macular edema; E11.22 Type 2 diabetes mellitus with diabetic chronic kidney disease; L03.031 Cellulitis of right toe; I99.8 Other disorder of circulatory system; E78.00 Pure hypercholesterolemia, unspecified; F17.210 Nicotine dependence, cigarettes, uncomplicated; E03.9 Hypothyroidism, unspecified; D63.1 Anemia in chronic kidney disease; J44.9 Chronic obstructive pulmonary disease, unspecified; Z79.4 Long term (current) use of insulin; Z79.82 Long term (current) use of aspirin; Z79.899 Other long term (current) drug therapy; Z89.411 Acquired absence of right great toe; Z87.442 Personal history of urinary calculi; Z99.2 Dependence on renal dialysis; Z91.19 Patient's noncompliance with other medical treatment and regimen; Z71.6 Tobacco abuse counseling; Z80.8 Family history of malignant neoplasm of other organs or systems; Z83.3 Family history of diabetes mellitus; Z82.49 Family history of ischemic heart disease and other diseases of the circulatory system; Z83.42 Family history of familial hypercholesterolemia; Z84.89 Family history of other specified conditions
CPT/HCPCS: 80074; 83605; 87040; 87070; 87081; 87205; 90935; 93005; 93925; 99285; J1644; J3370; J7030; J7040; J7050; J7060

== ENCOUNTER 2017-12-25 23:00 | Emergency (ER) | payer OTHER ==
[~2017-12-25] VITALS: Ht 167.6 cm; Wt 68.2 kg
[2017-12-25 23:04] VITALS: BP 140/74
[2017-12-25] MEDS ORDERED: CLIN300C9 PO (23:19)
[2017-12-25 23:27] LABS: GLUCOSE,POINT OF CARE 167 MG/DL (70-110)
== END 2017-12-26 00:47 | disposition home or self-care (01) ==
LOC: EMS 23:01
DX: L08.89 Other specified local infections of the skin and subcutaneous tissue (principal); E11.22 Type 2 diabetes mellitus with diabetic chronic kidney disease; E11.51 Type 2 diabetes mellitus with diabetic peripheral angiopathy without gangrene; I12.0 Hypertensive chronic kidney disease with stage 5 chronic kidney disease or end stage renal disease; N18.6 End stage renal disease; E03.9 Hypothyroidism, unspecified; E78.00 Pure hypercholesterolemia, unspecified; F17.210 Nicotine dependence, cigarettes, uncomplicated; Z79.4 Long term (current) use of insulin; Z79.82 Long term (current) use of aspirin; Z87.442 Personal history of urinary calculi; Z99.2 Dependence on renal dialysis; Z79.899 Other long term (current) drug therapy
CPT/HCPCS: 99283

== ENCOUNTER 2019-08-23 16:30 | Emergency (ER) | payer MEDICARE, OTHER ==
[~2019-08-23] VITALS: Ht 162.6 cm; Wt 78.0 kg
[~2019-08-23 16:30] MED LIST changes: -AMLO10TA4 PO; +CLIN300C9 PO; +SEVE0.8P6 PO; -SEVE800PW PO
[2019-08-23] MEDS ORDERED: TraMADol HCL 50 MG TABLET PO ONE (17:45)
[2019-08-23 17:56] LABS: BASOPHILS % (AUTO) 0.9 % (0.0-2.0); EOSINOPHILS % (AUTO) 6.8 % (1.0-6.0); HEMATOCRIT 29.1 % (41-53); HEMOGLOBIN 10.1 g/dL (13.5-17.5); LYMPHOCYTES # (AUTO) 1.3 K/uL (1.0-4.8); LYMPHOCYTES % (AUTO) 25.1 % (22.0-44.0); MEAN CORPUSCULAR HEMOGLOBIN 33.9 pg (26.0-34.0); MEAN CORPUSCULAR HGB CONC 34.8 G/dL (31.0-37.0); MEAN CORPUSCULAR VOLUME 97 fL (80-100); MONOCYTES # (AUTO) 0.4 K/uL (0.1-1.0); MONOCYTES % (AUTO) 7.5 % (2.0-9.0); NEUTROPHILS # (AUTO) 3.1 K/uL (1.8-7.7); NEUTROPHILS % (AUTO) 59.7 % (40.0-70.0); PLATELET COUNT (AUTO) 177 K/uL (150-450); RED BLOOD CELL COUNT(AUTO) 2.99 MIL/uL (4.50-5.90); RED CELL DISTRIBUTION WIDTH 12.9 % (11.5-14.5)
[2019-08-23 18:16] LABS: CALCIUM, TOTAL 8.9 mg/dL (8.8-10.5); CREATININE 10.45 mg/dL (0.60-1.30); POTASSIUM 5.2 mmol/L (3.5-5.1)
[2019-08-23 18:23] LABS: LACTIC ACID 0.5 mmol/L (0.4-2.0)
[2019-08-23 18:42] LABS: ALBUMIN 3.7 g/dL (3.4-5.0); BILIRUBIN,TOTAL 0.4 mg/dL (0.1-1.0); TOTAL PROTEIN, SERUM 7.2 g/dL (6.4-8.2)
[2019-08-23] MEDS ORDERED: SODIUM POLYSTYRENE SULFONATE 15 GM/60 ML SUSPENSION BOTTLE PO ONE (19:00)
[2019-08-23 19:21] VITALS: BP 152/83
== END 2019-08-23 19:20 | disposition home or self-care (01) ==
LOC: EMS 16:36
DX: M54.42 Lumbago with sciatica, left side (principal); E87.5 Hyperkalemia; E11.9 Type 2 diabetes mellitus without complications; I10 Essential (primary) hypertension; E78.00 Pure hypercholesterolemia, unspecified; F17.210 Nicotine dependence, cigarettes, uncomplicated; Z79.4 Long term (current) use of insulin
CPT/HCPCS: 83605

== ENCOUNTER 2019-08-30 14:18 | Inpatient (IN) | payer MEDICARE, OTHER ==
[~2019-08-30] VITALS: Ht 162.6 cm; Wt 75.1 kg
[~2019-08-30 14:18] MED LIST changes: -CLIN300C9 PO
[2019-08-30 14:36] LABS: GLUCOSE,POINT OF CARE 225 MG/DL (70-110)
[2019-08-30] MEDS ORDERED: FOLI0.8T2 PO (14:57)
[2019-08-30] MEDS ORDERED: ONDANSETRON HCL 4 MG/2 ML VIAL IVP ONE (15:00)
[2019-08-30 15:06] LABS: BASOPHILS % (AUTO) 0.4 % (0.0-2.0); HEMATOCRIT 33.9 % (41-53); HEMOGLOBIN 11.5 g/dL (13.5-17.5); LYMPHOCYTES # (AUTO) 0.8 K/uL (1.0-4.8); LYMPHOCYTES % (AUTO) 10.3 % (22.0-44.0); MEAN CORPUSCULAR HGB CONC 33.8 G/dL (31.0-37.0); MEAN CORPUSCULAR VOLUME 98 fL (80-100); MONOCYTES # (AUTO) 0.3 K/uL (0.1-1.0); MONOCYTES % (AUTO) 3.5 % (2.0-9.0); NEUTROPHILS % (AUTO) 84.8 % (40.0-70.0); PLATELET COUNT (AUTO) 244 K/uL (150-450); RED BLOOD CELL COUNT(AUTO) 3.47 MIL/uL (4.50-5.90)
[2019-08-30 15:22] LABS: PROTHROMBIN TIME 9.8 SEC (9.4-11.6)
[2019-08-30] MEDS ORDERED: CALCIUM GLUCONATE 100 MG/ML 10 ML IVP ONE ×2 (15:38→15:45)
[2019-08-30 15:45] LABS: ALBUMIN 3.8 g/dL (3.4-5.0); BILIRUBIN,TOTAL 0.5 mg/dL (0.1-1.0); CALCIUM, TOTAL 8.6 mg/dL (8.8-10.5); CREATININE 15.91 mg/dL (0.60-1.30); TOTAL PROTEIN, SERUM 7.7 g/dL (6.4-8.2)
[2019-08-30 15:55] LABS: POTASSIUM 6.8 mmol/L (3.5-5.1)
[2019-08-30] MEDS ORDERED: HydrALAZINE HCL 20 MG/ML VIAL IVP ONE (16:00)
[2019-08-30] MEDS ORDERED: INSULIN REGULAR, HUMAN 100 UNITS/ML SQ ONE (16:00)
[2019-08-30] MEDS ORDERED: ALBUTEROL SULFATE 5 MG/ML 20 ML NEB SOLN [BULK] NEB ONE (16:00)
[2019-08-30] MEDS ORDERED: DEXTROSE 50%-WATER 25 GM/50 ML SYRINGE IVP ONE (16:00)
[2019-08-30] MEDS ORDERED: NITROGLYCERIN 2% (1 GM=INCH) PACKET TP ONE ×2 (16:04→16:15)
[2019-08-30] MEDS ORDERED: SODIUM BICARBONATE [ADULT] 8.4% 50 MEQ/50 ML SYRINGE IVP ONE ×2 (16:07→16:15)
[2019-08-30] MEDS ORDERED: 0.9% SODIUM CHLORIDE 10 ML SYRINGE IVP PRN (17:00)
[2019-08-30] MEDS ORDERED: ACETAMINOPHEN 325 MG TABLET PO PRN (17:00)
[2019-08-30] MEDS ORDERED: ONDANSETRON HCL 4 MG/2 ML VIAL IVP PRN (17:00)
[2019-08-30] MEDS ORDERED: ACETAMINOPHEN 500 MG TABLET PO ONE (17:15)
[2019-08-30 17:41] LABS: GLUCOSE,POINT OF CARE 285 MG/DL (70-110)
[2019-08-30 22:03] LABS: GLUCOSE,POINT OF CARE 239 MG/DL (70-110)
[2019-08-30 23:25] VITALS: BP 187/66
[2019-08-30 23:55] LABS: CALCIUM, TOTAL 8.6 mg/dL (8.8-10.5); CREATININE 16.86 mg/dL (0.60-1.30); POTASSIUM 5.5 mmol/L (3.5-5.1)
[2019-08-31] VITALS (8 sets, daily range): BP systolic 103–179; BP diastolic 51–100
[2019-08-31] MEDS ORDERED: HydrALAZINE HCL 10 MG TABLET PO PRN (01:30)
[2019-08-31] MEDS ORDERED: OxyCODONE HCL/ACETAMINOPHEN 5-325 MG TABLET PO PRN ×3 (01:30→02:15)
[2019-08-31] MEDS: MORPHINE SULFATE 2 MG/ML SYRINGE IVP PRN ×2 (01:35→19:45)
[2019-08-31] MEDS ORDERED: ACETAMINOPHEN 325 MG TABLET PO PRN (02:15)
[2019-08-31] MEDS ORDERED: 0.9% SODIUM CHLORIDE 10 ML SYRINGE IVP PRN (02:15)
[2019-08-31] MEDS ORDERED: DEXTROSE 50%-WATER 25 GM/50 ML SYRINGE IVP PRN (02:15)
[2019-08-31] MEDS ORDERED: MAGNESIUM HYDROXIDE SUSPENSION 30 ML UDCUP PO PRN (02:15)
[2019-08-31 03:00] LABS: BASOPHILS % (AUTO) 0.8 % (0.0-2.0); EOSINOPHILS % (AUTO) 1.2 % (1.0-6.0); HEMOGLOBIN 8.5 g/dL (13.5-17.5); LYMPHOCYTES % (AUTO) 12.5 % (22.0-44.0); MEAN CORPUSCULAR HEMOGLOBIN 32.9 pg (26.0-34.0); MEAN CORPUSCULAR VOLUME 97 fL (80-100); MONOCYTES # (AUTO) 0.6 K/uL (0.1-1.0); MONOCYTES % (AUTO) 8.1 % (2.0-9.0); NEUTROPHILS % (AUTO) 77.4 % (40.0-70.0); PLATELET COUNT (AUTO) 240 K/uL (150-450); RED BLOOD CELL COUNT(AUTO) 2.58 MIL/uL (4.50-5.90)
[2019-08-31 03:25] LABS: ALBUMIN 3.3 g/dL (3.4-5.0); BILIRUBIN,TOTAL 0.4 mg/dL (0.1-1.0); CALCIUM, TOTAL 8.5 mg/dL (8.8-10.5); CREATININE 9.82 mg/dL (0.60-1.30); MAGNESIUM 2.2 mg/dL (1.80-2.40); PHOSPHORUS 4.3 mg/dL (2.5-4.9); POTASSIUM 4.4 mmol/L (3.5-5.1); THYROID STIMULATING HORMONE 1.19 uIU/mL (0.36-3.74)
[2019-08-31] MEDS: INSULIN LISPRO 100 UNITS/ML SQ PRN ×2 (06:08→11:29)
[2019-08-31] MEDS: LEVOTHYROXINE SODIUM 50 MCG TABLET PO SCH (06:08)
[2019-08-31 06:54] LABS: GLUCOSE,POINT OF CARE 220 MG/DL (70-110)
[2019-08-31] MEDS: ASPIRIN 81 MG CHEWABLE TABLET PO SCH (08:21)
[2019-08-31] MEDS: SEVELAMER CARBONATE 800 MG POWDER PACKET PO SCH ×3 (08:21→18:00)
[2019-08-31] MEDS: CALCITRIOL 0.25 MCG CAPSULE PO SCH (08:21)
[2019-08-31] MEDS: DOCUSATE SODIUM 100 MG CAPSULE PO SCH ×2 (08:21→20:57)
[2019-08-31] MEDS: FAMOTIDINE 10 MG/ML 2 ML VIAL IVP SCH (08:22)
[2019-08-31] MEDS: ONDANSETRON HCL 4 MG/2 ML VIAL IVP PRN ×3 (08:26→21:00)
[2019-08-31] MEDS ORDERED: CARVEDILOL 6.25 MG TABLET PO SCH (09:00)
[2019-08-31] MEDS: CARVEDILOL 6.25 MG TABLET PO SCH ×2 (10:01→20:57)
[2019-08-31] MEDS: VITAMIN B COMP/VIT C/FOLIC ACID CAPSULE PO SCH (11:30)
[2019-08-31] MEDS: HydrALAZINE HCL 20 MG/ML VIAL IVP PRN (13:39)
[2019-08-31 17:31] LABS: GLUCOMETER DEV NAME(LOC) 5S.2A; GLUCOSE,POINT OF CARE 129 MG/DL (70-110)
[2019-08-31 17:33] LABS: GLUCOSE,POINT OF CARE 179 MG/DL (70-110)
[2019-08-31] MEDS ORDERED: SODIUM CHLORIDE 0.9% 2,000 ML ONE (18:21)
[2019-08-31] MEDS: SIMVASTATIN 40 MG TABLET PO SCH (20:57)
[2019-09-01 01:22] LABS: GLUCOMETER DEV NAME(LOC) 5N.1; GLUCOSE,POINT OF CARE 126 MG/DL (70-110)
[2019-09-01 03:10] VITALS: BP 144/72
[2019-09-01 06:17] LABS: BASOPHILS % (AUTO) 0.9 % (0.0-2.0); EOSINOPHILS % (AUTO) 4.9 % (1.0-6.0); HEMOGLOBIN 9.2 g/dL (13.5-17.5); LYMPHOCYTES # (AUTO) 1.9 K/uL (1.0-4.8); LYMPHOCYTES % (AUTO) 24.4 % (22.0-44.0); MEAN CORPUSCULAR HEMOGLOBIN 33.4 pg (26.0-34.0); MEAN CORPUSCULAR VOLUME 98 fL (80-100); MONOCYTES # (AUTO) 0.7 K/uL (0.1-1.0); MONOCYTES % (AUTO) 9.6 % (2.0-9.0); NEUTROPHILS # (AUTO) 4.6 K/uL (1.8-7.7); NEUTROPHILS % (AUTO) 60.2 % (40.0-70.0); PLATELET COUNT (AUTO) 231 K/uL (150-450); RED BLOOD CELL COUNT(AUTO) 2.75 MIL/uL (4.50-5.90); RED CELL DISTRIBUTION WIDTH 12.9 % (11.5-14.5)
[2019-09-01 06:23] LABS: GLUCOMETER DEV NAME(LOC) 5S.2A; GLUCOSE,POINT OF CARE 137 MG/DL (70-110)
[2019-09-01 06:29] LABS: % IRON SATURATION 76.7 % (30-44)
[2019-09-01] MEDS: LEVOTHYROXINE SODIUM 50 MCG TABLET PO SCH (06:31)
[2019-09-01 06:56] LABS: CALCIUM, TOTAL 8.5 mg/dL (8.8-10.5); CREATININE 10.97 mg/dL (0.60-1.30); MAGNESIUM 2.5 mg/dL (1.80-2.40); POTASSIUM 5.7 mmol/L (3.5-5.1)
[2019-09-01 07:49] VITALS: BP 149/91
[2019-09-01] MEDS ORDERED: SODIUM POLYSTYRENE SULFONATE 15 GM/60 ML SUSPENSION BOTTLE PO ONE (08:15)
[2019-09-01] MEDS: ASPIRIN 81 MG CHEWABLE TABLET PO SCH (08:25)
[2019-09-01] MEDS: CALCITRIOL 0.25 MCG CAPSULE PO SCH (08:25)
[2019-09-01] MEDS: VITAMIN B COMP/VIT C/FOLIC ACID CAPSULE PO SCH (08:25)
[2019-09-01] MEDS: FAMOTIDINE 10 MG/ML 2 ML VIAL IVP SCH (08:25)
[2019-09-01] MEDS: SEVELAMER CARBONATE 800 MG TABLET PO SCH ×3 (08:25→18:03)
[2019-09-01] MEDS: CARVEDILOL 6.25 MG TABLET PO SCH ×2 (08:26→20:58)
[2019-09-01] MEDS ORDERED: EPOETIN ALFA 10,000 UNITS/ML VIAL SQ SCH (09:00)
[2019-09-01] MEDS: DOCUSATE SODIUM 100 MG CAPSULE PO SCH ×2 (10:23→20:58)
[2019-09-01] MEDS: HEPARIN SODIUM,PORCINE 5,000 UNITS/ML VIAL SQ SCH ×2 (10:24→20:58)
[2019-09-01 11:23] VITALS: BP 140/76
[2019-09-01] MEDS: INSULIN LISPRO 100 UNITS/ML SQ PRN ×2 (12:02→18:07)
[2019-09-01 15:31] VITALS: BP 175/96
[2019-09-01] MEDS: ONDANSETRON HCL 4 MG/2 ML VIAL IVP PRN (15:38)
[2019-09-01] MEDS: HydrALAZINE HCL 20 MG/ML VIAL IVP PRN (15:39)
[2019-09-01 17:23] LABS: GLUCOMETER DEV NAME(LOC) 5N.1; GLUCOSE,POINT OF CARE 176 MG/DL (70-110)
[2019-09-01 17:42] LABS: GLUCOMETER DEV NAME(LOC) 5N.1; GLUCOSE,POINT OF CARE 179 MG/DL (70-110)
[2019-09-01 19:30] VITALS: BP 146/77
[2019-09-01] MEDS: SIMVASTATIN 40 MG TABLET PO SCH (20:58)
[2019-09-01 23:50] LABS: GLUCOMETER DEV NAME(LOC) 5N.1; GLUCOSE,POINT OF CARE 126 MG/DL (70-110)
[2019-09-02] VITALS: BP 157/76
[2019-09-02 04:48] VITALS: BP 107/51
[2019-09-02] MEDS: LEVOTHYROXINE SODIUM 50 MCG TABLET PO SCH (06:05)
[2019-09-02 07:05] VITALS: BP 149/68
[2019-09-02 07:14] LABS: CALCIUM, TOTAL 8.3 mg/dL (8.8-10.5); CREATININE 13.16 mg/dL (0.60-1.30); POTASSIUM 4.8 mmol/L (3.5-5.1)
[2019-09-02] MEDS: CARVEDILOL 6.25 MG TABLET PO SCH (08:17)
[2019-09-02] MEDS: HEPARIN SODIUM,PORCINE 5,000 UNITS/ML VIAL SQ SCH (08:17)
[2019-09-02] MEDS: ASPIRIN 81 MG CHEWABLE TABLET PO SCH (08:17)
[2019-09-02] MEDS: CALCITRIOL 0.25 MCG CAPSULE PO SCH (08:17)
[2019-09-02] MEDS: FAMOTIDINE 10 MG/ML 2 ML VIAL IVP SCH (08:18)
[2019-09-02] MEDS: SEVELAMER CARBONATE 800 MG TABLET PO SCH ×2 (08:18→12:28)
[2019-09-02] MEDS: VITAMIN B COMP/VIT C/FOLIC ACID CAPSULE PO SCH (08:18)
[2019-09-02] MEDS: DOCUSATE SODIUM 100 MG CAPSULE PO SCH (08:18)
[2019-09-02] MEDS: ONDANSETRON HCL 4 MG/2 ML VIAL IVP PRN (09:20)
[2019-09-02 10:50] VITALS: BP 162/76
[2019-09-02 11:39] LABS: GLUCOMETER DEV NAME(LOC) 5S.1; GLUCOSE,POINT OF CARE 106 MG/DL (70-110)
[2019-09-02] MEDS: INSULIN LISPRO 100 UNITS/ML SQ PRN (12:27)
[2019-09-02 12:47] LABS: GLUCOMETER DEV NAME(LOC) 5S.1; GLUCOSE,POINT OF CARE 164 MG/DL (70-110)
[2019-09-02 15:02] VITALS: BP 165/91
== END 2019-09-02 18:50 | disposition home or self-care (01) | DRG 640 ==
LOC: EMS 14:22 → ICU 21:33 → 5S 08-31 14:55
PROVIDERS: ADMIT Internal Medicine; ATTEND Internal Medicine
PROC: 5A1D70Z Performance of Urinary Filtration, Intermittent, Less than 6 Hours Per Day (ICD-10-PCS; principal; 2019-08-30)
PROC: 5A1D70Z Performance of Urinary Filtration, Intermittent, Less than 6 Hours Per Day (ICD-10-PCS; 2019-08-31)
PROC: 5A1D70Z Performance of Urinary Filtration, Intermittent, Less than 6 Hours Per Day (ICD-10-PCS; 2019-09-02)
DX: E87.5 Hyperkalemia (principal); N18.6 End stage renal disease; I12.0 Hypertensive chronic kidney disease with stage 5 chronic kidney disease or end stage renal disease; E11.22 Type 2 diabetes mellitus with diabetic chronic kidney disease; E03.9 Hypothyroidism, unspecified; E78.00 Pure hypercholesterolemia, unspecified; D64.9 Anemia, unspecified; F17.210 Nicotine dependence, cigarettes, uncomplicated; R53.81 Other malaise; M54.32 Sciatica, left side; Z99.2 Dependence on renal dialysis; Z87.442 Personal history of urinary calculi; Z91.14 Patient's other noncompliance with medication regimen
CPT/HCPCS: 83540; 83550; 83735; 84100; 84443; 87081; 87340; 93005; 93306; 94640; 96374; 96375; 97116; 97162; 97530; 99291; G0378; J0360; J0610; J0885; J1644; J1815; J2270; J2405; J3490; J7030

== ENCOUNTER 2023-07-17 15:26 | Inpatient (IN) | payer MEDICARE, OTHER ==
[~2023-07-17] VITALS: Ht 170.2 cm; Wt 68.2 kg
[~2023-07-17 15:26] MED LIST changes: +CALC0.2521 PO; -CALC25 PO; +FOLI0.8T2 PO; -FOLI1CAP2 PO; -SEVE0.8P6 PO; +SEVE0.8P7 PO
[2023-07-17] MEDS ORDERED: AMLO5TAB66 PO (15:31)
[2023-07-17 16:40] LABS: BASOPHILS % (AUTO) 0.9 % (0.0-2.0); EOSINOPHILS % (AUTO) 5.6 % (1.0-6.0); HEMATOCRIT 30.7 % (41-53); HEMOGLOBIN 10.5 g/dL (13.5-17.5); LYMPHOCYTES # (AUTO) 1.2 K/uL (1.0-4.8); LYMPHOCYTES % (AUTO) 18.9 % (22.0-44.0); MEAN CORPUSCULAR HEMOGLOBIN 32.4 pg (26.0-34.0); MEAN CORPUSCULAR HGB CONC 34.2 G/dL (31.0-37.0); MEAN CORPUSCULAR VOLUME 95 fL (80-100); MONOCYTES # (AUTO) 0.6 K/uL (0.1-1.0); MONOCYTES % (AUTO) 9.9 % (2.0-9.0); NEUTROPHILS # (AUTO) 4.2 K/uL (1.8-7.7); NEUTROPHILS % (AUTO) 64.7 % (40.0-70.0); PLATELET COUNT (AUTO) 221 K/uL (150-450); RED BLOOD CELL COUNT(AUTO) 3.24 MIL/uL (4.50-5.90); RED CELL DISTRIBUTION WIDTH 13.3 % (11.5-14.5); WHITE BLOOD COUNT (AUTO) 6.5 K/uL (4.5-11.0)
[2023-07-17 16:41] LABS: ANION GAP 2 mmol/L (8-16); CALCIUM, TOTAL 9.2 mg/dL (8.8-10.5); CARBON DIOXIDE 35 mmol/L (22-29); CHLORIDE 97 mmol/L (98-107); CREATININE 6.61 mg/dL (0.60-1.30); GLOMERULAR FILTR. RATE CALC 9 mL/min (>60); GLUCOSE,RANDOM 395 mg/dL (70-110); POTASSIUM 5.3 mmol/L (3.5-5.1); SODIUM SERUM 134 mmol/L (136-145); UREA NITROGEN, BLOOD 29 mg/dL (7-18)
[2023-07-17 16:48] LABS: ALANINE AMINOTRANSFERASE 21 U/L (12-78); ALBUMIN 3.5 g/dL (3.4-5.0); ALKALINE PHOSPHATASE 83 U/L (46-116); ASPARTATE AMINOTRANSFERASE 16 U/L (15-37); BILIRUBIN,TOTAL 0.4 mg/dL (0.1-1.0)
[2023-07-17 16:50] LABS: LACTIC ACID 0.8 mmol/L (0.4-2.0)
[2023-07-17 17:02] LABS: TROPONIN I-HIGH SENSITIVITY 352 ng/L (<76)
[2023-07-17 17:04] LABS: B-TYPE NATRIURETIC PEPTIDE 2030 pg/mL (0-100)
[2023-07-17 17:13] LABS: COVID AG,FIA SOURCE NASAL SWAB
[2023-07-17 17:20] LABS: ALCOHOL, BLOOD (SERUM) < 3 mg/dL (0-10)
[2023-07-17] MEDS ORDERED: ACETAMINOPHEN 325 MG TABLET PO PRN (17:30)
[2023-07-17] MEDS ORDERED: ASPIRIN 81 MG CHEWABLE TABLET PO SCH (17:30)
[2023-07-17] MEDS ORDERED: DEXTROSE 50%-WATER 25 GM/50 ML SYRINGE IVP PRN (17:30)
[2023-07-17] MEDS ORDERED: BISACODYL 10 MG RECTAL RECTAL SUPPOSITORY PR PRN (17:30)
[2023-07-17] MEDS ORDERED: ONDANSETRON HCL 4 MG/2 ML VIAL IVP PRN (17:30)
[2023-07-17] MEDS ORDERED: ASPIRIN 325 MG TABLET PO ONE (17:30)
[2023-07-17] MEDS: CloNIDine HCL 0.1 MG TABLET PO PRN (17:43)
[2023-07-17] MEDS: AmLODIPine BESYLATE 10 MG TABLET PO SCH (17:51)
[2023-07-17] MEDS: ATORVASTATIN CALCIUM 20 MG TABLET PO SCH (17:51)
[2023-07-17 18:03] LABS: SARS-COV2 (COVID) ANTIGEN,FIA Negative (Negative)
[2023-07-17] MEDS: INSULIN GLARGINE,HUM.REC.ANLOG 100 UNITS/ML SQ SCH (20:12)
[2023-07-17] MEDS: DOCUSATE SODIUM 100 MG CAPSULE PO SCH (20:12)
[2023-07-17] MEDS: HEPARIN SODIUM,PORCINE 5,000 UNITS/ML VIAL SQ SCH (23:13)
[2023-07-17] MEDS: INSULIN LISPRO 100 UNITS/ML SQ PRN (23:16)
[2023-07-18] VITALS (13 sets, daily range): BP systolic 138–192; BP diastolic 68–101; PULSE 60–98; RESP 16–20; TEMP 97.6–98.7
[2023-07-18] MEDS ORDERED: CloNIDine HCL 0.1 MG TABLET PO ONE (00:15)
[2023-07-18] MEDS: LOSARTAN POTASSIUM 25 MG TABLET PO SCH ×3 (00:43→21:13)
[2023-07-18 06:56] LABS: GLUCOMETER DEV NAME(LOC) 5S.1B; GLUCOSE,POINT OF CARE 153 MG/DL (70-110)
[2023-07-18] MEDS: INSULIN LISPRO 100 UNITS/ML SQ PRN ×2 (06:56→22:10)
[2023-07-18 07:14] LABS: BASOPHILS % (AUTO) 1.1 % (0.0-2.0); EOSINOPHILS % (AUTO) 6.9 % (1.0-6.0); HEMATOCRIT 25.6 % (41-53); HEMOGLOBIN 9.1 g/dL (13.5-17.5); LYMPHOCYTES # (AUTO) 1.6 K/uL (1.0-4.8); LYMPHOCYTES % (AUTO) 25.1 % (22.0-44.0); MEAN CORPUSCULAR HEMOGLOBIN 33.5 pg (26.0-34.0); MEAN CORPUSCULAR HGB CONC 35.4 G/dL (31.0-37.0); MEAN CORPUSCULAR VOLUME 95 fL (80-100); MONOCYTES # (AUTO) 0.7 K/uL (0.1-1.0); MONOCYTES % (AUTO) 10.1 % (2.0-9.0); NEUTROPHILS # (AUTO) 3.7 K/uL (1.8-7.7); NEUTROPHILS % (AUTO) 56.8 % (40.0-70.0); PLATELET COUNT (AUTO) 202 K/uL (150-450); RED BLOOD CELL COUNT(AUTO) 2.71 MIL/uL (4.50-5.90); WHITE BLOOD COUNT (AUTO) 6.5 K/uL (4.5-11.0)
[2023-07-18 07:59] LABS: TROPONIN I-HIGH SENSITIVITY 316 ng/L (<76)
[2023-07-18] MEDS: HEPARIN SODIUM,PORCINE 5,000 UNITS/ML VIAL SQ SCH ×2 (08:00→17:05)
[2023-07-18] MEDS: FAMOTIDINE 20 MG TABLET PO SCH (09:00)
[2023-07-18] MEDS: ATORVASTATIN CALCIUM 20 MG TABLET PO SCH (09:00)
[2023-07-18] MEDS: AmLODIPine BESYLATE 10 MG TABLET PO SCH (09:00)
[2023-07-18] MEDS: DOCUSATE SODIUM 100 MG CAPSULE PO SCH ×2 (09:00→21:13)
[2023-07-18] MEDS ORDERED: ASPIRIN 81 MG CHEWABLE TABLET PO SCH (09:00)
[2023-07-18 12:40] LABS: CHOL/HDL RATIO 4.2 (4.2-7.3)
[2023-07-18] MEDS: FOLIC ACID/VIT B COMPLEX AND C TABLET PO SCH (14:30)
[2023-07-18] MEDS ORDERED: ATOR40TA71 PO (14:42)
[2023-07-18] MEDS ORDERED: ASPI-1444 PO (14:42)
[2023-07-18] MEDS ORDERED: SEVE800T17 PO (14:42)
[2023-07-18] MEDS ORDERED: SUCR500T PO (14:42)
[2023-07-18] MEDS: INSULIN GLARGINE,HUM.REC.ANLOG 100 UNITS/ML SQ SCH (22:11)
[2023-07-18 23:56] LABS: GLUCOMETER DEV NAME(LOC) 5S.2C; GLUCOSE,POINT OF CARE 364 MG/DL (70-110)
[2023-07-19] VITALS (8 sets, daily range): BP systolic 133–174; BP diastolic 71–89; PULSE 66–97; RESP 16–19; TEMP 97.8–98.4
[2023-07-19] MEDS: HEPARIN SODIUM,PORCINE 5,000 UNITS/ML VIAL SQ SCH ×2 (00:07→08:07)
[2023-07-19] MEDS: CloNIDine HCL 0.1 MG TABLET PO PRN (05:46)
[2023-07-19] MEDS: INSULIN LISPRO 100 UNITS/ML SQ PRN ×4 (06:04→20:09)
[2023-07-19 08:01] LABS: GLUCOMETER DEV NAME(LOC) 5S.2C; GLUCOSE,POINT OF CARE 133 MG/DL (70-110)
[2023-07-19] MEDS: LOSARTAN POTASSIUM 25 MG TABLET PO SCH (08:07)
[2023-07-19] MEDS: AmLODIPine BESYLATE 10 MG TABLET PO SCH (08:07)
[2023-07-19] MEDS: FAMOTIDINE 20 MG TABLET PO SCH (08:07)
[2023-07-19] MEDS: DOCUSATE SODIUM 100 MG CAPSULE PO SCH ×2 (08:08→20:03)
[2023-07-19] MEDS: FOLIC ACID/VIT B COMPLEX AND C TABLET PO SCH (08:08)
[2023-07-19] MEDS: ATORVASTATIN CALCIUM 20 MG TABLET PO SCH (08:08)
[2023-07-19 08:22] LABS: CHOL/HDL RATIO 3.9 (4.2-7.3)
[2023-07-19] MEDS ORDERED: EPOETIN ALFA 10,000 UNITS/ML VIAL SQ SCH (09:00)
[2023-07-19] MEDS ORDERED: ASPIRIN 81 MG CHEWABLE TABLET PO SCH (09:00)
[2023-07-19] MEDS ORDERED: CARVEDILOL 6.25 MG TABLET PO SCH (09:00)
[2023-07-19] MEDS ORDERED: CLOPIDOGREL BISULFATE 75 MG TABLET PO SCH (09:00)
[2023-07-19] MEDS ORDERED: HydrALAZINE HCL 20 MG/ML VIAL IVP ONE (12:00)
[2023-07-19] MEDS ORDERED: SODIUM CHLORIDE 0.9% 1,000 ML ONE (17:35)
[2023-07-19] MEDS: CARVEDILOL 12.5 MG TABLET PO SCH (20:03)
[2023-07-19] MEDS: INSULIN GLARGINE,HUM.REC.ANLOG 100 UNITS/ML SQ SCH (20:09)
[2023-07-19 21:11] LABS: GLUCOMETER DEV NAME(LOC) 5S.1B; GLUCOSE,POINT OF CARE 173 MG/DL (70-110)
[2023-07-19 21:51] LABS: GLUCOMETER DEV NAME(LOC) 5S.2C; GLUCOSE,POINT OF CARE 242 MG/DL (70-110)
[2023-07-19 23:31] LABS: GLUCOMETER DEV NAME(LOC) 5N.2C; GLUCOSE,POINT OF CARE 260 MG/DL (70-110)
[2023-07-19 23:35] LABS: GLUCOMETER DEV NAME(LOC) 5N.2C; GLUCOSE,POINT OF CARE 214 MG/DL (70-110)
[2023-07-20 04:13] VITALS: BP 148/75; PULSE 74; RESP 18; TEMP 97.7
[2023-07-20] MEDS: INSULIN LISPRO 100 UNITS/ML SQ PRN ×4 (04:17→22:16)
[2023-07-20 06:06] LABS: GLUCOMETER DEV NAME(LOC) 5N.2C; GLUCOSE,POINT OF CARE 355 MG/DL (70-110)
[2023-07-20 07:31] VITALS: BP 169/88; PULSE 79; RESP 18; TEMP 97.4
[2023-07-20] MEDS: CARVEDILOL 12.5 MG TABLET PO SCH ×2 (08:01→21:53)
[2023-07-20] MEDS: AmLODIPine BESYLATE 10 MG TABLET PO SCH (08:01)
[2023-07-20] MEDS: FOLIC ACID/VIT B COMPLEX AND C TABLET PO SCH (08:01)
[2023-07-20] MEDS: ATORVASTATIN CALCIUM 20 MG TABLET PO SCH (08:01)
[2023-07-20] MEDS: FAMOTIDINE 20 MG TABLET PO SCH (08:02)
[2023-07-20] MEDS: DOCUSATE SODIUM 100 MG CAPSULE PO SCH ×2 (08:02→21:00)
[2023-07-20 11:21] VITALS: BP 126/65; PULSE 66; RESP 17
[2023-07-20] MEDS: LOSARTAN POTASSIUM 25 MG TABLET PO SCH (11:28)
[2023-07-20 11:31] LABS: GLUCOMETER DEV NAME(LOC) 5N.2C; GLUCOSE,POINT OF CARE 269 MG/DL (70-110)
[2023-07-20 12:39] VITALS: BP 127/58; PULSE 65; RESP 17; TEMP 98.2
[2023-07-20 15:16] VITALS: BP 145/61; PULSE 70; RESP 18; TEMP 98.1
[2023-07-20 17:36] LABS: GLUCOMETER DEV NAME(LOC) 5N.2C; GLUCOSE,POINT OF CARE 334 MG/DL (70-110)
[2023-07-20 20:00] VITALS: BP 159/78; PULSE 73; RESP 18; TEMP 99
[2023-07-20] MEDS ORDERED: INSULIN LISPRO 100 UNITS/ML SQ ONE (22:15)
[2023-07-20] MEDS: INSULIN GLARGINE,HUM.REC.ANLOG 100 UNITS/ML SQ SCH (22:15)
[2023-07-21] VITALS (15 sets, daily range): BP systolic 124–183; BP diastolic 66–93; PULSE 71–82; RESP 18–20; TEMP 97.2–99.3
[2023-07-21 01:05] LABS: GLUCOMETER DEV NAME(LOC) 5N.2C; GLUCOSE,POINT OF CARE 426 MG/DL (70-110)
[2023-07-21] MEDS: HydrALAZINE HCL 20 MG/ML VIAL IVP PRN (04:59)
[2023-07-21] MEDS: INSULIN LISPRO 100 UNITS/ML SQ PRN ×3 (05:20→21:09)
[2023-07-21] MEDS: CARVEDILOL 12.5 MG TABLET PO SCH ×2 (08:32→21:07)
[2023-07-21] MEDS: ATORVASTATIN CALCIUM 20 MG TABLET PO SCH (08:32)
[2023-07-21] MEDS: DOCUSATE SODIUM 100 MG CAPSULE PO SCH ×2 (08:32→21:00)
[2023-07-21] MEDS: FAMOTIDINE 20 MG TABLET PO SCH (08:32)
[2023-07-21] MEDS: FOLIC ACID/VIT B COMPLEX AND C TABLET PO SCH (08:32)
[2023-07-21] MEDS: AmLODIPine BESYLATE 10 MG TABLET PO SCH (08:32)
[2023-07-21] MEDS ORDERED: SODIUM CHLORIDE 0.9% 1,000 ML ONE (10:32)
[2023-07-21] MEDS ORDERED: HydrALAZINE HCL 20 MG/ML VIAL IVP ONE (10:45)
[2023-07-21] MEDS: LOSARTAN POTASSIUM 25 MG TABLET PO SCH (11:00)
[2023-07-21 20:41] LABS: GLUCOMETER DEV NAME(LOC) 5N.1C; GLUCOSE,POINT OF CARE 265 MG/DL (70-110)
[2023-07-21 20:41] LABS: GLUCOMETER DEV NAME(LOC) 5N.1C; GLUCOSE,POINT OF CARE 260 MG/DL (70-110)
[2023-07-21] MEDS: INSULIN GLARGINE,HUM.REC.ANLOG 100 UNITS/ML SQ SCH (21:09)
[2023-07-21 22:01] LABS: GLUCOMETER DEV NAME(LOC) 5N.2C; GLUCOSE,POINT OF CARE 390 MG/DL (70-110)
[2023-07-22] VITALS (8 sets, daily range): BP systolic 140–172; BP diastolic 71–87; PULSE 73–80; RESP 18–19; TEMP 98.6–99.1
[2023-07-22] MEDS: INSULIN LISPRO 100 UNITS/ML SQ PRN ×5 (06:12→21:40)
[2023-07-22 07:46] LABS: GLUCOMETER DEV NAME(LOC) 5N.2C; GLUCOSE,POINT OF CARE 200 MG/DL (70-110)
[2023-07-22] MEDS: FOLIC ACID/VIT B COMPLEX AND C TABLET PO SCH (08:09)
[2023-07-22] MEDS: CARVEDILOL 12.5 MG TABLET PO SCH ×2 (08:09→21:38)
[2023-07-22] MEDS: DOCUSATE SODIUM 100 MG CAPSULE PO SCH ×3 (08:09→21:45)
[2023-07-22] MEDS: ATORVASTATIN CALCIUM 20 MG TABLET PO SCH (08:09)
[2023-07-22] MEDS: FAMOTIDINE 20 MG TABLET PO SCH (08:09)
[2023-07-22] MEDS: AmLODIPine BESYLATE 10 MG TABLET PO SCH (08:09)
[2023-07-22] MEDS: HydrALAZINE HCL 20 MG/ML VIAL IVP PRN (08:34)
[2023-07-22] MEDS ORDERED: CLOP75TA60 PO (11:30)
[2023-07-22 11:56] LABS: GLUCOMETER DEV NAME(LOC) 5N.1C; GLUCOSE,POINT OF CARE 291 MG/DL (70-110)
[2023-07-22] MEDS: LOSARTAN POTASSIUM 25 MG TABLET PO SCH (11:56)
[2023-07-22] MEDS: ASPIRIN 81 MG CHEWABLE TABLET PO SCH (11:56)
[2023-07-22] MEDS: CLOPIDOGREL BISULFATE 75 MG TABLET PO SCH (11:58)
[2023-07-22 16:30] LABS: GLUCOMETER DEV NAME(LOC) 5N.1C; GLUCOSE,POINT OF CARE 317 MG/DL (70-110)
[2023-07-22] MEDS: INSULIN GLARGINE,HUM.REC.ANLOG 100 UNITS/ML SQ SCH (21:41)
[2023-07-23] VITALS (15 sets, daily range): BP systolic 125–158; BP diastolic 56–77; PULSE 60–77; RESP 18–20; TEMP 97.2–98.9
[2023-07-23 01:11] LABS: GLUCOMETER DEV NAME(LOC) 5N.1C; GLUCOSE,POINT OF CARE 226 MG/DL (70-110)
[2023-07-23] MEDS: INSULIN LISPRO 100 UNITS/ML SQ PRN ×3 (06:18→20:14)
[2023-07-23 07:32] LABS: GLUCOMETER DEV NAME(LOC) 6S.2; GLUCOSE,POINT OF CARE 197 MG/DL (70-110)
[2023-07-23 07:43] LABS: CALCIUM, TOTAL 8.3 mg/dL (8.8-10.5); CREATININE 8.17 mg/dL (0.60-1.30)
[2023-07-23] MEDS: CLOPIDOGREL BISULFATE 75 MG TABLET PO SCH (08:28)
[2023-07-23] MEDS: CARVEDILOL 12.5 MG TABLET PO SCH ×2 (08:28→20:10)
[2023-07-23] MEDS: DOCUSATE SODIUM 100 MG CAPSULE PO SCH ×2 (08:28→20:10)
[2023-07-23] MEDS: AmLODIPine BESYLATE 10 MG TABLET PO SCH (08:28)
[2023-07-23] MEDS: ATORVASTATIN CALCIUM 20 MG TABLET PO SCH (08:28)
[2023-07-23] MEDS: FAMOTIDINE 20 MG TABLET PO SCH (08:28)
[2023-07-23] MEDS: ASPIRIN 81 MG CHEWABLE TABLET PO SCH (08:29)
[2023-07-23] MEDS ORDERED: SODIUM CHLORIDE 0.9% 1,000 ML ONE (10:47)
[2023-07-23] MEDS: LOSARTAN POTASSIUM 25 MG TABLET PO SCH (15:08)
[2023-07-23] MEDS: FOLIC ACID/VIT B COMPLEX AND C TABLET PO SCH (15:08)
[2023-07-23 16:42] LABS: GLUCOMETER DEV NAME(LOC) 6N.2B; GLUCOSE,POINT OF CARE 138 MG/DL (70-110)
[2023-07-23 18:17] LABS: GLUCOMETER DEV NAME(LOC) 6N.2B; GLUCOSE,POINT OF CARE 228 MG/DL (70-110)
[2023-07-23] MEDS: INSULIN GLARGINE,HUM.REC.ANLOG 100 UNITS/ML SQ SCH (20:15)
[2023-07-24 00:31] LABS: GLUCOMETER DEV NAME(LOC) 6S.2; GLUCOSE,POINT OF CARE 224 MG/DL (70-110)
[2023-07-24 03:43] VITALS: BP 160/79; PULSE 73; RESP 20; TEMP 98.7
[2023-07-24] MEDS: CloNIDine HCL 0.1 MG TABLET PO PRN (04:03)
[2023-07-24 04:51] LABS: GLUCOMETER DEV NAME(LOC) 6N.1B; GLUCOSE,POINT OF CARE 135 MG/DL (70-110)
[2023-07-24 06:42] VITALS: BP 151/67; PULSE 68; RESP 2
[2023-07-24] MEDS: DOCUSATE SODIUM 100 MG CAPSULE PO SCH ×2 (09:00→21:44)
[2023-07-24 09:11] VITALS: BP 139/71; PULSE 65; RESP 20; TEMP 98.4
[2023-07-24] MEDS: CARVEDILOL 12.5 MG TABLET PO SCH ×2 (10:30→21:44)
[2023-07-24] MEDS: FAMOTIDINE 20 MG TABLET PO SCH (10:30)
[2023-07-24] MEDS: ATORVASTATIN CALCIUM 20 MG TABLET PO SCH (10:30)
[2023-07-24] MEDS: AmLODIPine BESYLATE 10 MG TABLET PO SCH (10:30)
[2023-07-24] MEDS: ASPIRIN 81 MG CHEWABLE TABLET PO SCH (10:30)
[2023-07-24] MEDS: FOLIC ACID/VIT B COMPLEX AND C TABLET PO SCH (10:30)
[2023-07-24] MEDS: CLOPIDOGREL BISULFATE 75 MG TABLET PO SCH (10:32)
[2023-07-24] MEDS: INSULIN LISPRO 100 UNITS/ML SQ PRN ×3 (11:53→21:57)
[2023-07-24] MEDS: LOSARTAN POTASSIUM 25 MG TABLET PO SCH (13:10)
[2023-07-24 17:47] VITALS: BP 125/67; PULSE 64; RESP 20; TEMP 98.1
[2023-07-24 20:26] LABS: GLUCOMETER DEV NAME(LOC) 6N.2B; GLUCOSE,POINT OF CARE 332 MG/DL (70-110)
[2023-07-24 20:26] LABS: GLUCOMETER DEV NAME(LOC) 6N.1B; GLUCOSE,POINT OF CARE 289 MG/DL (70-110)
[2023-07-24] MEDS: INSULIN GLARGINE,HUM.REC.ANLOG 100 UNITS/ML SQ SCH (21:56)
[2023-07-24 22:04] VITALS: BP 141/72; PULSE 67; RESP 18; TEMP 98.1
[2023-07-25] VITALS (12 sets, daily range): BP systolic 137–185; BP diastolic 45–91; PULSE 62–74; RESP 18–20; TEMP 98.5–98.7
[2023-07-25] MEDS ORDERED: SODIUM CHLORIDE 0.9% 2,000 ML ONE (08:21)
[2023-07-25 11:21] LABS: GLUCOMETER DEV NAME(LOC) 6N.2B; GLUCOSE,POINT OF CARE 158 MG/DL (70-110)
[2023-07-25 11:21] LABS: GLUCOMETER DEV NAME(LOC) 6N.2B; GLUCOSE,POINT OF CARE 225 MG/DL (70-110)
[2023-07-25] MEDS: AmLODIPine BESYLATE 10 MG TABLET PO SCH (12:22)
[2023-07-25] MEDS: FOLIC ACID/VIT B COMPLEX AND C TABLET PO SCH (12:22)
[2023-07-25] MEDS: FAMOTIDINE 20 MG TABLET PO SCH (12:22)
[2023-07-25] MEDS: ATORVASTATIN CALCIUM 20 MG TABLET PO SCH (12:22)
[2023-07-25] MEDS: DOCUSATE SODIUM 100 MG CAPSULE PO SCH (12:22)
[2023-07-25] MEDS: CLOPIDOGREL BISULFATE 75 MG TABLET PO SCH (12:22)
[2023-07-25] MEDS: ASPIRIN 81 MG CHEWABLE TABLET PO SCH (12:23)
[2023-07-25] MEDS: CARVEDILOL 12.5 MG TABLET PO SCH (12:23)
[2023-07-25] MEDS: LOSARTAN POTASSIUM 25 MG TABLET PO SCH (12:25)
[2023-07-25 17:31] LABS: GLUCOMETER DEV NAME(LOC) 6N.2B; GLUCOSE,POINT OF CARE 110 MG/DL (70-110)
== END 2023-07-25 14:42 | DRG 64 ==
LOC: EMS 15:27 → AHU 17:48 → 5S 22:46 → 6S 07-23 01:00
PROVIDERS: ADMIT Internal Medicine; ATTEND Internal Medicine
PROC: 5A1D70Z Performance of Urinary Filtration, Intermittent, Less than 6 Hours Per Day (ICD-10-PCS; principal; 2023-07-18)
PROC: 5A1D70Z Performance of Urinary Filtration, Intermittent, Less than 6 Hours Per Day (ICD-10-PCS; 2023-07-21)
PROC: 5A1D70Z Performance of Urinary Filtration, Intermittent, Less than 6 Hours Per Day (ICD-10-PCS; 2023-07-23)
PROC: 5A1D70Z Performance of Urinary Filtration, Intermittent, Less than 6 Hours Per Day (ICD-10-PCS; 2023-07-25)
DX: I63.29 Cerebral infarction due to unspecified occlusion or stenosis of other precerebral arteries (principal); N18.6 End stage renal disease; I12.0 Hypertensive chronic kidney disease with stage 5 chronic kidney disease or end stage renal disease; N25.81 Secondary hyperparathyroidism of renal origin; G81.91 Hemiplegia, unspecified affecting right dominant side; E11.40 Type 2 diabetes mellitus with diabetic neuropathy, unspecified; E11.22 Type 2 diabetes mellitus with diabetic chronic kidney disease; E11.65 Type 2 diabetes mellitus with hyperglycemia; Z99.2 Dependence on renal dialysis; E87.5 Hyperkalemia; R79.89 Other specified abnormal findings of blood chemistry; Z20.822 Contact with and (suspected) exposure to COVID-19; D64.9 Anemia, unspecified; D63.1 Anemia in chronic kidney disease; E11.51 Type 2 diabetes mellitus with diabetic peripheral angiopathy without gangrene; E78.00 Pure hypercholesterolemia, unspecified; F17.210 Nicotine dependence, cigarettes, uncomplicated; E03.9 Hypothyroidism, unspecified; Z87.442 Personal history of urinary calculi; Z79.899 Other long term (current) drug therapy; Z82.49 Family history of ischemic heart disease and other diseases of the circulatory system; Z83.3 Family history of diabetes mellitus; Z89.421 Acquired absence of other right toe(s)
CPT/HCPCS: 70450; 70544; 70551; 71045; 80048; 80053; 80061; 82962; 83605; 83880; 84484; 85025; 87340; 90935; 92610; 93005; 93306; 93880; 97112; 97116; 97163; 97166; 97530; 97535; 99291; G0480; J0360; J0885; J1644; J1815; J7030; 36415-L1; 36415-TC